=== PATIENT | female | born 1980 | race Caucasian/White ===

== ENCOUNTER 2016-03-01 08:16 | Emergency (ER) | payer BC, OTHER ==
[2016-03-01 08:22] VITALS: RESP 18; TEMP 98
[2016-03-01] MEDS ORDERED: PANTOPRAZOLE 40 MG/10 ML VIAL IVP STA (08:32)
[2016-03-01] MEDS ORDERED: SODIUM CHLORIDE 0.9% 1,000 ML IV STA ×2 (08:32)
[2016-03-01] MEDS ORDERED: ONDANSETRON 4 MG/2 ML VIAL IVP STA (08:32)
--- NOTE | 2016-03-01 08:38 | ED ---
General Adult HPI - General Chief complaint: GI Bleed Stated complaint: DIARRHEA, BLOODY STOOL, ABDOMINAL PAIN Time Seen by Provider: 03/01/16 08:26 Source: patient, RN notes reviewed Mode of arrival: ambulatory Limitations: no limitations - History of Present Illness Initial comments: Patient 35-year-old female who presents emergency room today with a chief complaint of diarrhea with blood mixed into the stool over the last 2 days. Patient does admit that she's had several bouts of diarrhea over the last 2-3 days. She states she began noticing some what appears to be blood mixed in to the stool. She states she's also see in the toilet itself. She denies ever having similar symptoms in the past. Denies any recent antibiotic use or travel. Patient does admit some cramping in the lower abdomen. She states seems like when she eats things 1 ago straight through her. Patient does admit to feeling nauseated at times. She denies any other complaints associated symptoms. Currently rates pain at 3/10 located in the lower abdomen described as crampy. Patient denies any recent fever, chills, shortness of breath, chest pain, back pain, vomiting, numbness or tingling, dysuria or hematuria, constipation, headaches or visual changes, or any other complaints. - Related Data Home Medications Medication Instructions Recorded Confirmed ALPRAZolam [Xanax] 0.25 mg PO TID PRN 06/17/14 03/01/16 Carisoprodol [Soma] 350 mg PO DAILY PRN 06/17/14 03/01/16 Methadone [Dolophine] 10 mg PO BID 06/17/14 03/01/16 Mirtazapine [Remeron] 15 mg PO HS 05/27/15 03/01/16 Ondansetron HCl [Zofran] 4 mg PO Q8HR PRN 12/15/15 03/01/16 cloNIDine 0.1 MG/24HR PATCH 1 patch TRANSDERM Q7D 03/01/16 03/01/16 [Catapres-Tts 0.1MG Patch] Previous Rx's Medication Instructions Recorded Omeprazole 20 mg PO DAILY 10 Days 03/01/16 Ondansetron Odt [Zofran ODT] 4 mg PO Q8HR PRN #15 tab 03/01/16 Allergies Allergy/AdvReac Type Severity Reaction Status Date / Time aspirin AdvReac Abdominal Verified 03/01/16 08:44 Pain Review of Systems ROS Statement: Those systems with pertinent positive or pertinent negative responses have been documented in the HPI. ROS Other: All systems not noted in ROS Statement are negative. Past Medical History Past Medical History: Liver Disease Additional Past Medical History / Comment(s): hep c, pneumothorax with chest tube in past. History of Any Multi-Drug Resistant Organisms: None Reported Past Surgical History: Section Additional Past Surgical History / Comment(s): Colposcopy/LEEP, wisdom teeth extraction. Past Anesthesia/Blood Transfusion Reactions: No Reported Reaction Past Psychological History: Anxiety, Depression Additional Psychological History / Comment(s): Pt resides with her spouse and children. She is independent. Smoking Status: Current every day smoker Past Alcohol Use History: Rare Additional Past Alcohol Use History / Comment(s): Pt started smoking in 1996. She has been trying to quit the past couple of months and using a patch. Past Drug Use History: Heroin, Marijuana Additional Drug Use History / Comment(s): Pt states she smokes marijuana on a mostly daily basis and last smoked yesterday. She has hx of heroin use and last used 7 yrs ago. She is on methadone. - Past Family History Mother Family Medical History: COPD Additional Family Medical History / Comment(s): Ex-smoker Father Family Medical History: CVA/TIA Additional Family Medical History / Comment(s): brain aneurysm. General Exam - General Exam Comments Initial Comments: General: The patient is awake and alert, in no distress, and does not appear acutely ill. Eye: Pupils are equal, round and reactive to light, extra-ocular movements are intact. No nystagmus. There is normal conjunctiva bilaterally. No signs of icterus. Ears, nose, mouth and throat: There are moist mucous membranes and no oral lesions. Neck: The neck is supple, there is no tenderness or JVD. Cardiovascular: There is a regular rate and rhythm. No murmur, rub or gallop is appreciated. Respiratory: Lungs are clear to auscultation, respirations are non-labored, breath sounds are equal. No wheezes, stridor, rales, or rhonchi. Gastrointestinal: Normal. His abdomen. Normal bowel sounds. Abdomen soft on palpation. Patient does have mild tenderness lower abdomen. No rebound tenderness. No guarding. No CVA tenderness. Musculoskeletal: Normal ROM, no tenderness. Strength 5/5. Sensation intact. Pulses equal bilaterally 2+. Neurological: A&O x 3. CN II-XII intact, There are no obvious motor or sensory deficits. Coordination appears grossly intact. Speech is normal. Skin: Skin is warm and dry and no rashes or lesions are noted. Psychiatric: Cooperative, appropriate mood & affect, normal judgment. : [employer] Dawna present for exam. Normal rectal tone. No bright red blood per rectum. No hemorrhoids. Limitations: no limitations Course Vital Signs 03/01/16 08:18 Temperature 98.0 F Pulse Rate 77 Respiratory 18 Rate Blood Pressure 122/56 O2 Sat by Pulse 100 Oximetry Medical Decision Making - Medical Decision Making Patient reexamined at this time shows no signs of distress. Does admit that she 's feeling better after medications given here in the emergency room. Abdomen soft on reexamination. Her x-rays reviewed does show moderate amount of stool no sign of an obstruction. Patient's labs been reviewed guaiac was negative. Patient's hemoglobin stable. No elevated white count or sign for infection. No fever. Vitals are stable. Patient is advised follow-up the family doctor over the next 2 days. She'll be treated with omeprazole, Zofran for her symptoms. Also given information for GI and was discussed about possibility of a colonoscopy. Patient is advised to return if any symptoms increase or worsen or for any other concerns. She states understanding and is in agreement. - Lab Data Result diagrams: 03/01/16 08:50 03/01/16 08:50 Lab Results 03/01/16 03/01/16 03/01/16 Range/Units 08:50 08:50 08:50 WBC 6.1 (3.8-10.6) k/uL RBC 3.66 L (3.80-5.40) m/uL Hgb 11.0 L (11.4-16.0) gm/dL Hct 32.9 L (34.0-46.0) % MCV 89.9 (80.0-100.0) fL MCH 30.0 (25.0-35.0) pg MCHC 33.4 (31.0-37.0) g/dL RDW 13.0 (11.5-15.5) % Plt Count 159 (150-450) k/uL Neutrophils % 73 % Lymphocytes % 19 % Monocytes % 5 % Eosinophils % 2 % Basophils % 0 % Neutrophils # 4.5 (1.3-7.7) k/uL Lymphocytes # 1.2 (1.0-4.8) k/uL Monocytes # 0.3 (0-1.0) k/uL Eosinophils # 0.1 (0-0.7) k/uL Basophils # 0.0 (0-0.2) k/uL PT 9.9 (9.0-12.0) sec INR 1.0 (<1.1) APTT 25.4 (22.0-30.0) sec Sodium 142 (137-145) mmol/L Potassium 3.5 (3.5-5.1) mmol/L Chloride 108 H (98-107) mmol/L Carbon Dioxide 24 (22-30) mmol/L Anion Gap 10 mmol/L BUN 13 (7-17) mg/dL Creatinine 0.73 (0.52-1.04) mg/dL Est GFR (MDRD) Af Amer >60 (>60 ml/min/1.73 sqM) Est GFR (MDRD) Non-Af >60 (>60 ml/min/1.73 sqM) Glucose 106 H (74-99) mg/dL Calcium 8.8 (8.4-10.2) mg/dL Total Bilirubin 0.4 (0.2-1.3) mg/dL AST 14 (14-36) U/L ALT 23 (9-52) U/L Alkaline Phosphatase 35 L (38-126) U/L Total Protein 6.3 (6.3-8.2) g/dL Albumin 3.9 (3.5-5.0) g/dL Urine Color Urine Appearance (Clear) Urine pH (5.0-8.0) Ur Specific [place] (1.001-1.035) Urine Protein (Negative) Urine Glucose (UA) (Negative) Urine Ketones (Negative) Urine Blood (Negative) Urine Nitrate (Negative) Urine Bilirubin (Negative) Urine Urobilinogen (<2.0) mg/dL Ur Leukocyte Esterase (Negative) Urine RBC (0-5) /hpf Urine WBC (0-5) /hpf Ur Squamous Epith Cells (0-4) /hpf Urine Bacteria (None) /hpf Urine Mucus (None) /hpf Urine HCG, Qual (Not Detectd) Stool Occult Blood (Negative) 03/01/16 03/01/16 03/01/16 Range/Units 08:50 09:45 09:45 WBC (3.8-10.6) k/uL RBC (3.80-5.40) m/uL Hgb (11.4-16.0) gm/dL Hct (34.0-46.0) % MCV (80.0-100.0) fL MCH (25.0-35.0) pg MCHC (31.0-37.0) g/dL RDW (11.5-15.5) % Plt Count (150-450) k/uL Neutrophils % % Lymphocytes % % Monocytes % % Eosinophils % % Basophils % % Neutrophils # (1.3-7.7) k/uL Lymphocytes # (1.0-4.8) k/uL Monocytes # (0-1.0) k/uL Eosinophils # (0-0.7) k/uL Basophils # (0-0.2) k/uL PT (9.0-12.0) sec INR (<1.1) APTT (22.0-30.0) sec Sodium (137-145) mmol/L Potassium (3.5-5.1) mmol/L Chloride (98-107) mmol/L Carbon Dioxide (22-30) mmol/L Anion Gap mmol/L BUN (7-17) mg/dL Creatinine (0.52-1.04) mg/dL Est GFR (MDRD) Af Amer (>60 ml/min/1.73 sqM) Est GFR (MDRD) Non-Af (>60 ml/min/1.73 sqM) Glucose (74-99) mg/dL Calcium (8.4-10.2) mg/dL Total Bilirubin (0.2-1.3) mg/dL AST (14-36) U/L ALT (9-52) U/L Alkaline Phosphatase (38-126) U/L Total Protein (6.3-8.2) g/dL Albumin (3.5-5.0) g/dL Urine Color Yellow Urine Appearance Clear (Clear) Urine pH 6.5 (5.0-8.0) Ur Specific [place] 1.014 (1.001-1.035) Urine Protein Negative (Negative) Urine Glucose (UA) Negative (Negative) Urine Ketones Negative (Negative) Urine Blood Negative (Negative) Urine Nitrate Negative (Negative) Urine Bilirubin Negative (Negative) Urine Urobilinogen <2.0 (<2.0) mg/dL Ur Leukocyte Esterase Trace H (Negative) Urine RBC 1 (0-5) /hpf Urine WBC 1 (0-5) /hpf Ur Squamous Epith Cells 7 H (0-4) /hpf Urine Bacteria Rare H (None) /hpf Urine Mucus Rare H (None) /hpf Urine HCG, Qual Not Detected (Not Detectd) Stool Occult Blood Negative (Negative) Disposition Clinical Impression: Abdominal pain Disposition: HOME SELF-CARE Condition: Good Instructions: Abdominal Pain (ED) Additional Instructions: Please follow the family doctor and GI doctor over the next 1-2 days. Please use medications as prescribed. Please return to emergency room if there is any lightheadedness, dizziness or increase or worsening symptoms as discussed. Please return for any other concerns. Prescriptions: Omeprazole 20 mg PO DAILY 10 Days Ondansetron Odt [Zofran ODT] 4 mg PO Q8HR PRN #15 tab PRN Reason: Nausea Referrals: Fuad Woodard MD [Primary Care Provider] - 1-2 days Nader Edward MD [STAFF PHYSICIAN] - 1-2 days Time of Disposition: 10:37
[2016-03-01 09:04] LABS: Basophils % (A) 0 %; CH 30.5; CHCM 34.1; Eosinophils # (A) 0.1 k/uL (0-0.7); Eosinophils % (A) 2 %; HCT 32.9 % (34.0-46.0); HDW 2.43; Luc # (Auto) 0.05; Luc % (Auto) 1; Lymphocytes # (A) 1.2 k/uL (1.0-4.8); Lymphocytes % (A) 19 %; MCHC 33.4 g/dL (31.0-37.0); MCV 89.9 fL (80.0-100.0); Mean Platelet Volume 8.5; Monocytes # (A) 0.3 k/uL (0-1.0); Monocytes % (A) 5 %; Neutrophils # (A) 4.5 k/uL (1.3-7.7); Neutrophils % (A) 73 %; RBC 3.66 m/uL (3.80-5.40); WBC 6.1 k/uL (3.8-10.6); WBC (Perox) 6.07
[2016-03-01 09:12] LABS: Partial Thromboplastin Time 25.4 sec (22.0-30.0); Prothrombin Time 9.9 sec (9.0-12.0)
[2016-03-01 09:18] LABS: ALT 23 U/L (9-52); AST 14 U/L (14-36); Alkaline Phosphatase 35 U/L (38-126); Anion Gap 10 mmol/L; Blood Urea Nitrogen 13 mg/dL (7-17); Calcium 8.8 mg/dL (8.4-10.2); Carbon Dioxide 24 mmol/L (22-30); Chloride 108 mmol/L (98-107); Glucose 106 mg/dL (74-99); Non-African American GFR(MDRD) >60 (>60 ml/min/1.73 sqM); Potassium 3.5 mmol/L (3.5-5.1); Sodium 142 mmol/L (137-145); Total Bilirubin 0.4 mg/dL (0.2-1.3); Total Protein 6.3 g/dL (6.3-8.2)
[2016-03-01] MEDS ORDERED: ACETAMINOPHEN IV (For NPO) 1,000 MG in SALINE 100 100ML.BAG IVPB STA (09:42)
[2016-03-01 09:59] LABS: Appearance,Urine Clear (Clear); Bacteria,Urine Rare /hpf; Bilirubin,Urine Negative (Negative); Glucose,Urine (UA) Negative (Negative); Ketones,Urine Negative (Negative); Leukocyte Esterase,Urine Trace (Negative); Mucus,Urine Rare /hpf; Nitrite,Urine Negative (Negative); PH, Urine 6.5 (5.0-8.0); Particle Count 3179; Protein,Urine Negative (Negative); RBC,Urine 1 /hpf (0-5); Specific Gravity,Urine 1.014 (1.001-1.035); Squamous Epithelial Cell,Urine 7 /hpf (0-4); UA Billing (MACRO vs. MICRO) MICRO; Urobilinogen,Urine <2.0 mg/dL (<2.0); WBC,Urine 1 /hpf (0-5)
--- NOTE | 2016-03-01 10:21 | XR ---
EXAMINATION TYPE: XR KUB DATE OF EXAM: 03/01/2016 10:17 AM COMPARISON: 12/15/2015 HISTORY: Pain FINDINGS: The osseous structures are intact. The bowel gas pattern is nonspecific. Lung bases are clear. Post surgical change in the pelvis and vascular calcifications noted. Retained fecal debris throughout the colon. IMPRESSION: 1. Nonspecific abdomen.
[2016-03-01 11:10] VITALS: BP 115/55; PULSE 60
== END 2016-03-01 11:08 | disposition home or self-care (01) ==
LOC: EC 08:16
DX: R10.30 Lower abdominal pain, unspecified (principal); R19.7 Diarrhea, unspecified; R11.0 Nausea; F41.9 Anxiety disorder, unspecified; F32.9 Major depressive disorder, single episode, unspecified; F12.90 Cannabis use, unspecified, uncomplicated; F11.99 Opioid use, unspecified with unspecified opioid-induced disorder; F17.200 Nicotine dependence, unspecified, uncomplicated; Z86.19 Personal history of other infectious and parasitic diseases; Z79.899 Other long term (current) drug therapy
CPT/HCPCS: 36415; 80053; 85025; 85610; 85730; 82272; 81001; 81025; 74000; 99284; 96374; 96375 ×2; 96361 ×2; J2405; J0131; C9113

== ENCOUNTER → 2016-03-08 | Outpatient (CLI) | payer BC, OTHER ==
[2016-03-08 11:10] LABS: CH 30.1; HCT 37.6 % (34.0-46.0); HDW 2.52; MCH 29.3 pg (25.0-35.0); MCV 91.7 fL (80.0-100.0); Mean Platelet Volume 8.4; WBC 3.6 k/uL (3.8-10.6); WBC (Perox) 3.87
[2016-03-08 11:27] LABS: Bilirubin, Delta 0.4 mg/dL (0.0-0.2); Total Bilirubin 0.4 mg/dL (0.2-1.3); Total Protein 7.1 g/dL (6.3-8.2)
[2016-03-08 14:36] LABS: Add Differential Manual Differential
[2016-03-08 14:39] LABS: Nucleated Red Blood Cells 0 /100 WBC (0-0); Total Cells Counted 100
[2016-03-10 12:14] LABS: Hepatits C Virus RNA, Quant <12 IU/mL (<12); LOG HCV IU/mL <1.08 (<1.08)
== END | disposition home or self-care (01) ==
LOC: LABWHC1 10:34
DX: B18.2 Chronic viral hepatitis C (principal)
CPT/HCPCS: 36415; 80076; 85025; 87522

== ENCOUNTER → 2016-11-28 | Outpatient (CLI) | payer BC, OTHER ==
--- NOTE | 2016-11-28 11:41 | CT ---
EXAMINATION TYPE: CT pelvis w con DATE OF EXAM: 11/28/2016 COMPARISON: CT abdomen and pelvis December 15, 2015 HISTORY: Chronic pelvic mass per patient. Pelvic and perineal pain per order. CT DLP: 333.60 mGycm Automated exposure control for dose reduction was used. CONTRAST: Performed with IV Contrast, patient injected with 100 ml mL of Omnipaque 300. FINDINGS: Visualized bowel shows no suspicious dilatation. Surgical sutures and clips at base of cecum from lanie endectomy are present on current study. Uterus is anteverted in shape and normal in size. Tubal ligation clips along the periphery of the sup erior uterus are redemonstrated. Both ovaries are present and not suspiciously enlarged. No significa nt free fluid is seen in pelvis. The perirectal/perianal fat bilaterally symmetric and felt within normal limits. Visualized osseous structures are intact. Bladder is felt unremarkable. IMPRESSION: UNREMARKABLE STUDY
== END | disposition home or self-care (01) ==
LOC: RADCTMAIN 09:47
PROVIDERS: ATTEND Family Medicine
DX: R10.2 Pelvic and perineal pain (principal)
CPT/HCPCS: 72193; Q9967

== ENCOUNTER 2017-06-26 22:03 | Emergency (ER) | payer BC, OTHER ==
[2017-06-27] MEDS ORDERED: ALPRAZolam 0.5 MG TAB PO STA
--- NOTE | 2017-06-27 00:01 | ED ---
Anxiety HPI - General Chief Complaint: Anxiety Stated Complaint: xanax withdrawl Time Seen by Provider: 06/26/17 23:53 Source: patient Mode of arrival: ambulatory - History of Present Illness Initial Comments: 36-year-old female patient presents to the emergency department today with complaints of anxiety and withdrawal. Patient states that she ran out of her Xanax early in her primary care provider will not give her another prescription. States that he is did start her on BuSpar today but is not helping with her symptoms. Patient states that she feels scared and panicky. States this is generally how she feels in her anxiety gets bad. She denies any suicidal or homicidal ideation. Denies any hallucinations. She denies any alcohol or drug use. Patient denies any recent rash, fever, chills, shortness breath, chest pain, abdominal pain, nausea, vomiting, diarrhea, constipation, back pain, numbness, tingling, dizziness, weakness, hematuria, dysuria, urinary urgency, urinary frequency, headache, visual changes, or any other complaints. - Related Data Home Medications: Home Medications Medication Instructions Recorded Confirmed Carisoprodol [Soma] 350 mg PO DAILY PRN 06/17/14 06/26/17 HYDROcodone/APAP 10-325MG [[place] 1 tab PO Q6HR PRN 06/26/17 06/26/17 10-325] busPIRone HCL [Buspar] 7.5 mg PO BID 06/26/17 06/26/17 cloNIDine HCL [Catapres] 0.1 mg PO HS 06/26/17 06/26/17 Allergies/Adverse Reactions: Allergies Allergy/AdvReac Type Severity Reaction Status Date / Time aspirin AdvReac Abdominal Verified 06/26/17 23:39 Pain Review of Systems ROS Statement: Those systems with pertinent positive or pertinent negative responses have been documented in the HPI. ROS Other: All systems not noted in ROS Statement are negative. Past Medical History Past Medical History: Liver Disease Additional Past Medical History / Comment(s): hep c, pneumothorax with chest tube in past. History of Any Multi-Drug Resistant Organisms: None Reported Past Surgical History: Section Additional Past Surgical History / Comment(s): Colposcopy/LEEP, wisdom teeth extraction. Past Anesthesia/Blood Transfusion Reactions: No Reported Reaction Past Psychological History: Anxiety, Depression Smoking Status: Current every day smoker Past Alcohol Use History: Rare Past Drug Use History: Heroin, Marijuana - Past Family History Mother Family Medical History: COPD Additional Family Medical History / Comment(s): Ex-smoker Father Family Medical History: CVA/TIA Additional Family Medical History / Comment(s): brain aneurysm. General Exam Limitations: no limitations General appearance: alert, in no apparent distress, anxious, other (This is a well-developed, well-nourished adult female patient in no acute distress. Vital signs upon presentation are temperature 97.6F, pulse 64, respirations 16 , blood pressure 117/63, pulse ox 99% on room air.) Eye exam: Present: normal appearance, PERRL, EOMI. Absent: scleral icterus, conjunctival injection, periorbital swelling ENT exam: Present: normal exam, mucous membranes moist Neck exam: Present: normal inspection. Absent: tenderness, meningismus, lymphadenopathy Respiratory exam: Present: normal lung sounds bilaterally. Absent: respiratory distress, wheezes, rales, rhonchi, stridor Cardiovascular Exam: Present: regular rate, normal rhythm, normal heart sounds. Absent: systolic murmur, diastolic murmur, rubs, gallop, clicks Neurological exam: Present: alert, oriented X3, CN II-XII intact Psychiatric exam: Present: normal affect, normal mood, anxious Skin exam: Present: warm, dry, intact, normal color. Absent: rash Course Vital Signs 06/26/17 06/27/17 22:09 00:14 Temperature 97.6 F 98.0 F Pulse Rate 64 60 Respiratory 16 18 Rate Blood Pressure 117/63 122/57 O2 Sat by Pulse 99 97 Oximetry Medical Decision Making - Medical Decision Making 36 year-old female patient presents to the emergency department today for complaints of anxiety and withdrawal from Xanax. Physical examination was unremarkable. Vital signs are stable. Did discuss the case with my attending Dr. Espinoza who recommends giving the patient Xanax to go home with. I did discuss this with the patient and informed her we would not be giving her prescription. She is instructed to obtain prescriptions for controlled substances from her primary care physician. Return parameters discussed in detail. She verbalizes understanding and agrees with this plan. Disposition Clinical Impression: Withdrawal from benzodiazepine Disposition: HOME SELF-CARE Condition: Good Instructions: Generalized Anxiety Disorder (ED) Additional Instructions: Follow-up with your primary care physician for any further medication needs. Return here immediately for any new, worsening, or concerning symptoms. Is patient prescribed a controlled substance at d/c from ED?: No Referrals: Fuad Woodard MD [Primary Care Provider] - 1-2 days Time of Disposition: 00:01
[2017-06-27 00:15] VITALS: BP 122/57; PULSE 60; RESP 18; TEMP 98
== END 2017-06-27 00:15 | disposition home or self-care (01) ==
LOC: EC 22:03
DX: F19.939 Other psychoactive substance use, unspecified with withdrawal, unspecified (principal); F41.9 Anxiety disorder, unspecified; F17.200 Nicotine dependence, unspecified, uncomplicated; Z79.899 Other long term (current) drug therapy; Z88.6 Allergy status to analgesic agent
CPT/HCPCS: 99283

== ENCOUNTER → 2019-11-16 | Outpatient (CLI) | payer BC, OTHER ==
--- NOTE | 2019-11-17 07:18 | US ---
EXAMINATION TYPE: US transvaginal DATE OF EXAM: 11/16/2019 COMPARISON: US CLINICAL HISTORY: N92.6 IRREGULAR MENSES. Patient stated irregular menses 6 to 12 months; ; C sec tion x 2; colposcopy TECHNIQUE: Transvaginal (TV). Transvaginal sonographic images of the pelvis were acquired per physi jessica's order. Date of LMP: 11/12/2019 EXAM MEASUREMENTS: Uterus: 8.4 x 4.6 x 4.0 cm Endometrial Stripe: 0.7 cm Right Ovary: 2.3 x 2.1 x 1.2 cm Left Ovary: 2.7 x 2.5 x 1.3 cm 1. Uterus: Anteverted; C section scar is noted; small Nabothian Cyst seen in cervix = 0.6 x 0.5 x 0. 4cm. 2. Endometrium: thickness is wnl for Day 5 LMP 3. Right Ovary: small follicles within 4. Left Ovary: small follicles within Color flow is seen in bilateral ovary. 5. Bilateral Adnexa: wnl 6. Posterior cul-de-sac: wnl IMPRESSION: 1. Small bilateral ovarian follicles with no definite acute process. 2. Endometrial stripe measures 7 mm correlate with patient's menstrual cycle.
== END | disposition home or self-care (01) ==
LOC: RADUSWWP 15:40
DX: N92.6 Irregular menstruation, unspecified (principal); Z86.19 Personal history of other infectious and parasitic diseases
CPT/HCPCS: 76830; 87522

== ENCOUNTER 2020-03-04 20:21 | Emergency (ER) | payer BC, OTHER ==
[2020-03-04 20:26] VITALS: BP 132/74; PULSE 80; RESP 20; TEMP 98.3
--- NOTE | 2020-03-04 20:37 | ED ---
General Adult HPI - General Chief complaint: Psychiatric Symptoms Stated complaint: Anxiety Time Seen by Provider: 03/04/20 20:28 Source: patient Mode of arrival: wheelchair Limitations: no limitations - History of Present Illness Initial comments: Dictation was produced using [employer] dictation software. please excuse any grammatical, word or spelling errors. This patient was cared for during a federal and state declared state of emergency secondary to Covid 19 Chief Complaint: 39-year-old female presents with depression and suicidal ideation History of Present Illness: 39-year-old female she has past medical history of anxiety. She took Risperdal. She reports she was never formally diagnosed with any sort of psychiatric disease. She states she feels really anxious on on for 2 days to the point where she can't sleep. She does feel suicidal. She does not have a specific plan. She is worried if she goes home she might harm herself. Patient denies any homicidal ideation. States that she is anxious about everything. No visual or auditory hallucinations. Patient's history of bilateral tubal ligation. The ROS documented in this emergency department record has been reviewed and confirmed by me. Those systems with pertinent positive or negative responses have been documented in the HPI. All other systems are other negative and/or noncontributory. PHYSICAL EXAM: General Impression: Alert and oriented x3, not in acute distress HEENT: Normocephalic atraumatic, extra-ocular movements intact, pupils equal and reactive to light bilaterally, mucous membranes moist. Cardiovascular: Heart regular rate and rhythm Chest: Able to complete full sentences, no retractions, no tachypnea Abdomen: abdomen soft, non-tender, non-distended, no organomegaly Musculoskeletal: Pulses present and equal in all extremities, no peripheral edema Motor: no focal deficits noted Neurological: CN II-XII grossly intact, no focal motor or sensory deficits noted Skin: Intact with no visualized rashes Psych: Tearful ED course: 39-year-old female presents with suicidal ideation. Signs upon arrival are within acceptable limits. Patient medically cleared for EPS evaluation. Patient was evaluated by EPS recommended discharge. Allegedly placed and had a lot of frustration with sexual intimacy with her . She given outpatient psychiatric resources. - Related Data Home Medications Medication Instructions Recorded Confirmed Carisoprodol [Soma] 350 mg PO DAILY PRN 06/17/14 06/26/17 HYDROcodone/APAP 10-325MG [[place] 1 tab PO Q6HR PRN 06/26/17 06/26/17 10-325] busPIRone HCL [Buspar] 7.5 mg PO BID 06/26/17 06/26/17 cloNIDine HCL [Catapres] 0.1 mg PO HS 06/26/17 06/26/17 Allergies Allergy/AdvReac Type Severity Reaction Status Date / Time aspirin AdvReac Abdominal Verified 03/04/20 20:26 Pain Review of Systems ROS Statement: Those systems with pertinent positive or pertinent negative responses have been documented in the HPI. ROS Other: All systems not noted in ROS Statement are negative. Past Medical History Past Medical History: Liver Disease Additional Past Medical History / Comment(s): hep c, pneumothorax with chest tube in past. History of Any Multi-Drug Resistant Organisms: None Reported Past Surgical History: Section Additional Past Surgical History / Comment(s): Colposcopy/LEEP, wisdom teeth extraction. Past Anesthesia/Blood Transfusion Reactions: No Reported Reaction Past Psychological History: Anxiety, Depression Smoking Status: Former smoker Past Alcohol Use History: Rare Past Drug Use History: Heroin, Marijuana - Past Family History Mother Family Medical History: COPD Additional Family Medical History / Comment(s): Ex-smoker Father Family Medical History: CVA/TIA Additional Family Medical History / Comment(s): brain aneurysm. General Exam Limitations: no limitations Course Vital Signs 03/04/20 20:22 Temperature 98.3 F Pulse Rate 80 Respiratory 20 Rate Blood Pressure 132/74 O2 Sat by Pulse 96 Oximetry Disposition Clinical Impression: Depression Disposition: HOME SELF-CARE Condition: Good Is patient prescribed a controlled substance at d/c from ED?: No Referrals: Fuad Woodard MD [Primary Care Provider] - 1-2 days Time of Disposition: 21:48
[2020-03-04] MEDS ORDERED: ONDANSETRON ODT 4 MG TAB PO STA (21:45)
== END 2020-03-04 21:58 | disposition home or self-care (01) ==
LOC: EC 20:21
DX: F32.9 Major depressive disorder, single episode, unspecified (principal); F41.9 Anxiety disorder, unspecified; Z79.899 Other long term (current) drug therapy; Z88.6 Allergy status to analgesic agent; Z87.891 Personal history of nicotine dependence
CPT/HCPCS: 82075; 99283

== ENCOUNTER 2021-08-09 20:36 | Inpatient (IN) | payer BC, MEDICAID, OTHER ==
--- NOTE | 2021-08-09 22:12 | ED ---
Psych HPI - General Chief Complaint: Psychiatric Symptoms Stated Complaint: mental health Time Seen by Provider: 08/09/21 22:11 Source: patient Mode of arrival: ambulatory - Related Data Home Medications Medication Instructions Recorded Confirmed carisoprodoL [Soma] 350 mg PO DAILY PRN 06/17/14 06/26/17 HYDROcodone/APAP 10-325MG [[place] 1 tab PO Q6HR PRN 06/26/17 06/26/17 10-325] busPIRone HCL [Buspar] 7.5 mg PO BID 06/26/17 06/26/17 cloNIDine HCL [Catapres] 0.1 mg PO HS 06/26/17 06/26/17 Allergies Allergy/AdvReac Type Severity Reaction Status Date / Time aspirin AdvReac Abdominal Verified 08/09/21 21:59 Pain Review of Systems ROS Statement: Those systems with pertinent positive or pertinent negative responses have been documented in the HPI. ROS Other: All systems not noted in ROS Statement are negative. Past Medical History Past Medical History: Liver Disease Additional Past Medical History / Comment(s): hep c, pneumothorax with chest tube in past. History of Any Multi-Drug Resistant Organisms: None Reported Past Surgical History: Section Additional Past Surgical History / Comment(s): Colposcopy/LEEP, wisdom teeth extraction. Past Anesthesia/Blood Transfusion Reactions: No Reported Reaction Past Psychological History: Anxiety, Depression, PTSD Smoking Status: Former smoker Past Alcohol Use History: Rare Past Drug Use History: Heroin, Marijuana - Past Family History Mother Family Medical History: COPD Additional Family Medical History / Comment(s): Ex-smoker Father Family Medical History: CVA/TIA Additional Family Medical History / Comment(s): brain aneurysm. General Exam Limitations: no limitations Course Vital Signs 08/09/21 21:55 Temperature 97.2 F L Pulse Rate 66 Respiratory 18 Rate Blood Pressure 115/77 O2 Sat by Pulse 95 Oximetry Disposition Clinical Impression: Polysubstance abuse, Depression, Suicidal ideation Disposition: TRANSFER TO PSYCH HOSP/UNIT Condition: Fair Is patient prescribed a controlled substance at d/c from ED?: No
[2021-08-10] MEDS ORDERED: LORazepam 1 MG TAB PO PRN (02:21)
[2021-08-10] MEDS ORDERED: MAGNESIUM HYDROXIDE 2,400 MG/10 ML CUP PO PRN (02:21)
[2021-08-10] MEDS ORDERED: MAG HYDROX/AL HYDROX/SIMETH 30 ML CUP PO PRN (02:21)
[2021-08-10] MEDS ORDERED: ACETAMINOPHEN TAB 325 MG TAB PO PRN (02:21)
[2021-08-10] MEDS: HYDROcodone/APAP 10-325MG 1 EACH TAB PO PRN ×3 (08:22→21:10)
[2021-08-10 08:23] VITALS: RESP 20; TEMP 98.3
[2021-08-10] MEDS ORDERED: busPIRone HCl 5 MG TAB PO SCH (09:00)
[2021-08-10] MEDS ORDERED: NICOTINE 14MG/24HR PATCH TRANSDERM SCH (09:00)
[2021-08-10] MEDS ORDERED: DICYCLOMINE 20 MG TAB PO PRN (12:51)
[2021-08-10] MEDS ORDERED: IBUPROFEN 600 MG TAB PO PRN (12:51)
[2021-08-10] MEDS ORDERED: ALBUTEROL HFA INHALER INHALATION PRN (12:51)
--- NOTE | 2021-08-10 13:17 | P.HP ---
Psychiatric H&P - . H&P Date: 08/10/21 History & Physical: Allergies Allergy/AdvReac Type Severity Reaction Status Date / Time aspirin AdvReac Abdominal Verified 08/10/21 10:17 Pain Vital Signs Temp 98.3 F 08/10/21 08:23 Pulse 79 08/10/21 08:23 Resp 20 08/10/21 08:23 BP 127/86 08/10/21 08:23 Pulse Ox 98 08/10/21 04:47 FiO2 Intake & Output 08/09/21 08/10/21 08/10/21 18:59 06:59 18:59 Weight 87.798 kg Laboratory Last Values Urine HCG, Qual Not Detected (Not Detectd) 08/10/21 08:30 Coronavirus (PCR) Not Detected (Not Detectd) 08/10/21 02:57 08/10/21 13:04 IDENTIFYING DATA: Patient is a 40-year-old female who currently lives with her in a house has 3 kids and is unemployed. HPI: Patient presented to the hospital yesterday for a mental health evaluation depression and apparently suicidal thoughts according the ER report. Patient was admitted voluntarily to the mental health unit last night. Patient was fairly demanding in the hallways and aggressively asking to speak with the physician underwriter about her medications. She was seen today before lunch time and agreeable speaking in the right's office. Patient was fairly demanding and states that she wants back on all her medication. Patient was fairly focused on her Lyrica, Xanax and Valium and other controlled medications including her opiates. She states that the only thing that helps her feel better. She claims that she knows "my rights" and claims that she is "not being treated right at all" and believes that she is going to go into withdrawals and also seizures. She states she as well as take her Valium and Xanax twice a day and is prescribed by her PCP. She states that she has been feeling depressed however is denying any suicidal thoughts today. She was demanding and irritable and w anting to go home. Patient denies any suicidal or homicidal ideations intent or plan. At this time patient denies any auditory or visual hallucinations. Patient denies any flight of ideas racing thoughts and increased in goal directed behavior. Patient admits to using opiates as prescribed by her doctor, also smokes marijuana daily. Denies any other recreational drug use PAST PSYCHIATRIC HISTORY: Patient states that she has history of anxiety and depression, previously on BuSpar, Lexapro, Remeron, Valium and Xanax. Patient denies any previous psychiatric hospitalizations. He claims that she does follow-up at [facility] however does not see any prescriber at that. Patient denies any history of suicide attempts in the past. PMH: As per medicine H&P ALLERGIES: as per EMR CHEMICAL DEPENDENCY HISTORY: as per HPI FAMILY PSYCHIATRIC/SUBSTANCE USE HISTORY: denies SOCIAL HISTORY: Patient was born and raised in [facility]. She states that she completed up to 10th grade in school. She claims that she does not have any legal history. 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 She is unemployed at this time. She has 3 kids and lives with her and house. MENTAL STATUS EXAM: General Appearance: Patient appears to be tall, stated age is alert, demanding and irritable. Patient appears to have fair hygiene and grooming. Behavior: Patient is seated without any agitated behavior. Demanding. Irritable. Speech: Patient's speech is fluent and nonpressured. Loud at times Mood/Affect: Patient reports their mood is depressed, affect is congruent Suicidality/Homicidality: Patient denies having any homicidal ideation intent or plan. Denies any suicidal ideations intent or plan Perceptions: Patient denies any visual hallucinations and denies any auditory hallucinations Though content/process: There is no evidence of any delusional thought content and thought process is linear and goal-directed. Demanding. Focus on discharge Memory and concentration: AOX3, grossly intact for the purposes of this session. Can spell "WORLD" backwards Judgment and insight: Poor STRENGTHS/WEAKNESSES: strength is that patient is resilient. Weakness is that patient has poor judgment and is impulsive INTELLECT: average IMPRESSIONS: Depressive disorder unspecified Cannabis use disorder mild Possible benzodiazepine abuse Possible opioid abuse PLAN: -Patient is admitted under voluntary status to MHU for stabilization of psychiatric symptoms and safety. Patient has signed adult voluntary form and is placed in patient's chart. -Medications : Will start patient on her home dose of Lexapro 20 mg daily for mood sessions that he, Remeron 30 mg daily at bedtime for insomnia/appetite/mood, Klonopin restarted at home dose 5 mg twice a day. Holding Xanax at this time. -Ativan and Haldol] PRN for agitation/aggression [-Patient was counselled on substance abuse and desired to cut back on use] -Patient was informed of the risks, benefits and side effects of the medication and patient verbally consented to taking the medications. Patient signed med consent form and was placed in chart. -Internal Medicine consult to perform medical evaluation and physical. -NRT - not needed as patient does not smoke -SW on board for discharge planning. Encourage patient to participate in groups to work on coping skills. [] 08/10/21 13:12
[2021-08-10] MEDS: PANTOPRAZOLE 40 MG TABLET PO SCH (13:55)
[2021-08-10] MEDS: ESCITALOPRAM 20 MG TAB PO SCH (13:55)
[2021-08-10] MEDS: diazePAM 5 MG TAB PO SCH ×2 (13:55→21:09)
[2021-08-10] MEDS: ALPRAZolam 0.5 MG TAB PO PRN (16:21)
[2021-08-10] MEDS ORDERED: ONDANSETRON ODT 4 MG TAB PO PRN (16:52)
[2021-08-10 19:50] VITALS: BP 166/101; PULSE 111
[2021-08-10] MEDS: cloNIDine HCL 0.1 MG TAB PO PRN (19:53)
[2021-08-10] MEDS ORDERED: cloNIDine HCL 0.1 MG TAB PO SCH (21:00)
[2021-08-10] MEDS ORDERED: MIRTAZAPINE 15 MG TAB PO SCH (21:00)
[2021-08-10 21:46] LABS: Urine Alcohol Negative (Negative); Urine Barbiturate Negative (Negative); Urine Cocaine Negative (Negative); Urine Methadone Negative (Negative); Urine Opiates Positive (Negative); Urine Phencyclidine Negative (Negative)
[2021-08-11] MEDS: ALPRAZolam 0.5 MG TAB PO PRN (01:33)
[2021-08-11] MEDS: cloNIDine HCL 0.1 MG TAB PO PRN (02:29)
[2021-08-11] MEDS: HYDROcodone/APAP 10-325MG 1 EACH TAB PO PRN (05:58)
[2021-08-11] MEDS: ESCITALOPRAM 20 MG TAB PO SCH (08:27)
[2021-08-11] MEDS: diazePAM 5 MG TAB PO SCH (08:27)
[2021-08-11] MEDS: PANTOPRAZOLE 40 MG TABLET PO SCH (08:27)
--- NOTE | 2021-08-11 11:16 | P.DS ---
Providers Date of admission: 08/10/21 02:05 Expected date of discharge: 08/11/21 Attending physician: Kilo Bloom MD Consults: 08/10/21 02:21 Consult Physician Routine Consulting Provider: Mirella Tucker Consult Reason/Comments: h and p Do you want consulting provider notified?: Yes, Notify in am Primary care physician: Fuad Woodard MD - Discharge Diagnosis(es) (1) Depressive disorder Current Visit: Yes Status: Acute Priority: High (2) Generalized anxiety disorder Current Visit: Yes Status: Acute Priority: Medium (3) Cannabis use disorder, mild, abuse Current Visit: Yes Status: Acute Priority: Low (4) Benzodiazepine abuse Current Visit: Yes Status: Acute Priority: Medium (5) Opioid abuse Current Visit: Yes Status: Acute Priority: Medium Hospital Course: Admission HPI: Admission note was completed by designer/writer "Patient is a 40-year-old female who currently lives with her in a house has 3 kids and is unemployed. Patient presented to the hospital yesterday for a mental health evaluation depression and apparently suicidal thoughts according the ER report. Patient was admitted voluntarily to the mental health unit last night. Patient was fairly demanding in the hallways and aggressively asking to speak with the designer/writer about her medications. She was seen today before lunch time and agreeable speaking in the right's office. Patient was fairly demanding and states that she wants back on all her medication. Patient was fairly focused on her Lyrica, Xanax and Valium and other controlled medications including her opiates. She states that the only thing that helps her feel better. She claims that she knows "my rights" and claims that she is "not being treated right at all" and believes that she is going to go into withdrawals and also seizures. She states she as well as take her Valium and Xanax twice a day and is prescribed by her PCP. She states that she has been feeling depressed however is denying any suicidal thoughts today. She was demanding and irritable and wanting to go home. Patient denies any suicidal or homicidal ideations intent or plan. At this time patient denies any auditory or visual hallucinations. Patient denies any flight of ideas racing thoughts and increased in goal directed behavior. Patient admits to using opiates as prescribed by her doctor, also smokes marijuana daily. Denies any other recreational drug use" Hospital course: Upon admission to the unit patient was directable and agreeable to commence treatment and signed adult voluntary form . Patient was fairly demanding and preoccupied with discharge on her first day of admission and signed AMA. Patient started taking her medications and got along well with other patients on the unit and followed unit protocol. Patient was compliant with the medications and denied any side effects throughout hospital course. Patient was started on her home dose of clonidine when necessary for anxiety, Lexapro 20 mg daily for mood/anxiety, Remeron 30 mg daily at bedtime for insomnia/update/mood, restarted back on Klonopin at a lower dose 0.5 mg 3 times a day when necessary for anxiety. Held Xanax. Patient was restarted back on Valium her home dose and also her home dose of [place]'s. Patient spoke of her stressors and engaged in t herapy both group and individual. Patient was also seen by medical team for history and physical exam. Throughout the course of the hospitalization patient gradually improved with regards to mood, anxiety, sleep and returned back to their baseline level of functioning. On the day of discharge patient denied any suicidal or homicidal ideations intent or plan denied any auditory or visual hallucinations. Patient endorsed wanting to live for her health and her future. The patient denied any access to guns or weapons. Patient denied any paranoia and did not endorse any delusions. Patient does have a significant history of substance abuse and was counseled on abstaining from all substances including alcohol and marijuana. Patient elected to do outpatient substance use treatment program and declined rehab. Patient was also counseled on the medications and need for regular compliance and was encouraged to follow-up with their outpatient appointment for mental health and also for primary care. Prior to discharge a family meeting will be arranged by social work professor to answer any questions and ensure safety upon discharge. Mental status exam: General Appearance: Patient appears to be have short hair, stated age is alert, pleasant, and cooperative. Patient is in no acute distress and has improved hygiene and grooming Behavior: Patient is calmly seated without any agitated behavior. Her cooperative today and less demanding. Speech: Patient's speech is fluent and nonpressured. Mood/Affect: Patient reports their mood is "better", affect is congruent Suicidality/Homicidality: Patient denies having any suicidal or homicidal ideation intent or plan. Perceptions: Patient denies any auditory or visual hallucinations. Though content/process: There is no evidence of any delusional thought content and thought process is linear and goal-directed. more future oriented Memory and concentration: AOX3, grossly intact for the purposes of this session. Can spell "WORLD" backwards correctly. Judgment and insight: improved with guarded prognosis Impression: Depressive disorder unspecified Generalized anxiety disorder Cannabis use disorder mild Benzodiazepine abuse Opioid abuse Plan: -Continue with discharge today as patient has improved and stabilized psychiatrically and is not currently an imminent threat to herself and/or others. Patient will remain at chronically elevated risk for harm to self and/or others due to her impulsivity and substance abuse. -Continue medications: Continue with Klonopin at a lower dose 0.5 mg 3 times a day when necessary for anxiety, home dose of Valium 5 mg twice a day for anxiety, Remeron 30 mg daily at bedtime for insomnia/appetite/mood, Lexapro 20 mg daily for mood/anxiety. -Patient was counseled on the need for medication compliance and appropriate follow-up at mental health and also primary care for medical issues. Patient verbalized understanding and agreed. -Social work to arrange for and conduct family meeting to ensure safety upon discharge and answer any questions/concerns. Social work also to arrange for patients follow up appointments for psychiatric care along with follow up with primary care provider. -Patient counseled on abstaining from recreational drugs and marijuana and alcohol. Was informed/educated on the adverse effects on their physical and mental health. Patient verbally agreed and understood. Patient was offered substance abuse treatment however declined at this time. -Patient was instructed to return to the hospital or seek immediate medical care if their psychiatric or medical symptoms do worsen or reoccur. Allergies Allergy/AdvReac Type Severity Reaction Status Date / Time aspirin AdvReac Abdominal Verified 08/10/21 10:17 Pain Laboratory Results Urine HCG, Qual Not Detected (Not Detectd) 08/10/21 08:30 Urine Opiates Screen Positive (Negative) A 08/10/21 08:30 Urine Methadone Screen Negative (Negative) 08/10/21 08:30 Ur Propoxyphene Screen Negative (Negative) 08/10/21 08:30 Urine Barbiturates Negative (Negative) 08/10/21 08:30 Ur Phencyclidine Scrn Negative (Negative) 08/10/21 08:30 Ur Amphetamine Screen Negative (Negative) 08/10/21 08:30 U Benzodiazepines Scrn Positive (Negative) A 08/10/21 08:30 Urine Cocaine Screen Negative (Negative) 08/10/21 08:30 U Cannabinoids Screen Positive (Negative) A 08/10/21 08:30 Urine Alcohol Negative (Negative) 08/10/21 08:30 Coronavirus (PCR) Not Detected (Not Detectd) 08/10/21 02:57 Vital Signs Temp 98.3 F 08/10/21 08:23 Pulse 111 H 08/10/21 19:49 Resp 20 08/10/21 08:23 BP 166/101 08/10/21 19:49 Pulse Ox 98 08/10/21 04:47 FiO2 Patient Condition at Discharge: Stable Plan - Discharge Summary New Discharge Prescriptions: New cloNIDine HCL [Catapres] 0.1 mg PO BID PRN 14 Days tab PRN Reason: Anxiety ALPRAZolam [Xanax] 0.5 mg PO TID PRN tab PRN Reason: Anxiety Continue HYDROcodone/APAP 10-325MG [[place] 10-325] 1.5 tab PO Q8H PRN PRN Reason: Pain Dicyclomine [Bentyl] 20 mg PO TID PRN PRN Reason: CRAMPS Escitalopram [Lexapro] 20 mg PO DAILY 30 Days tab Ondansetron Odt [Zofran ODT] 4 mg PO Q12HR PRN PRN Reason: Nausea Omeprazole 20 mg PO DAILY Albuterol Sulfate [Proair Hfa] 2 puff INHALATION RT-Q4H PRN PRN Reason: Shortness Of Breath Ibuprofen [Motrin] 600 mg PO Q8HR PRN PRN Reason: Pain diazePAM [Valium] 5 mg PO BID Ergocalciferol [Vitamin D2 (1250 Mcg = 58880 Iu)] 1,250 mcg PO SO Mirtazapine [Remeron] 30 mg PO HS 30 Days tab Discontinued cloNIDine HCL [Catapres] 0.1 mg PO TID risperiDONE [RisperDAL] 1 mg PO HS Naloxone HCl 4 mg NS ONCE PRN PRN Reason: OVERDOSE ALPRAZolam [Xanax] 1 mg PO BID PRN PRN Reason: Anxiety methocarbamoL [Robaxin] 500 mg PO BID PRN PRN Reason: Muscle Spasm Discharge Medication List HYDROcodone/APAP 10-325MG [[place] 10-325] 1.5 tab PO Q8H PRN 06/26/17 [History] Albuterol Sulfate [Proair Hfa] 2 puff INHALATION RT-Q4H PRN 08/10/21 [History] Dicyclomine [Bentyl] 20 mg PO TID PRN 08/10/21 [History] Ergocalciferol [Vitamin D2 (1250 Mcg = 16635 Iu)] 1,250 mcg PO SO 08/10/21 [History] Ibuprofen [Motrin] 600 mg PO Q8HR PRN 08/10/21 [History] Omeprazole 20 mg PO DAILY 08/10/21 [History] Ondansetron Odt [Zofran ODT] 4 mg PO Q12HR PRN 08/10/21 [History] diazePAM [Valium] 5 mg PO BID 08/10/21 [History] ALPRAZolam [Xanax] 0.5 mg PO TID PRN tab 08/11/21 [Rx] Escitalopram [Lexapro] 20 mg PO DAILY 30 Days tab 08/11/21 [Rx] Mirtazapine [Remeron] 30 mg PO HS 30 Days tab 08/11/21 [Rx] cloNIDine HCL [Catapres] 0.1 mg PO BID PRN 14 Days tab 08/11/21 [Rx] Follow up Appointment(s)/Referral(s): Fuad Woodard MD [Primary Care Provider] - 1-2 days Discharge Disposition: HOME SELF-CARE
[2021-08-11 12:15] LABS: Basophils % (A) 0 %; Eosinophils % (A) 0 %; HCT 40.8 % (34.0-46.0); HGB 13.6 gm/dL (11.4-16.0); Lymphocytes # (A) 1.6 k/uL (1.0-4.8); Lymphocytes % (A) 24 %; MCHC 33.2 g/dL (31.0-37.0); MCV 87.3 fL (80.0-100.0); Mean Platelet Volume 7.9; Monocytes # (A) 0.3 k/uL (0-1.0); Monocytes % (A) 5 %; Neutrophils # (A) 4.4 k/uL (1.3-7.7); Neutrophils % (A) 69 %; Platelet Count 280 k/uL (150-450); RBC 4.67 m/uL (3.80-5.40); RDW 14.2 % (11.5-15.5); WBC 6.4 k/uL (3.8-10.6)
[2021-08-11 12:55] LABS: ALT 25 U/L (4-34); AST 29 U/L (14-36); African American GFR (CKD) >90 (>60 ml/min/1.73 sqM); Albumin 4.9 g/dL (3.5-5.0); Alkaline Phosphatase 63 U/L (38-126); Anion Gap 14 mmol/L; Blood Urea Nitrogen 11 mg/dL (7-17); Carbon Dioxide 19 mmol/L (22-30); Chloride 106 mmol/L (98-107); Glucose 114 mg/dL (74-99); Non-African American GFR(CKD) >90 (>60 ml/min/1.73 sqM); Potassium 3.4 mmol/L (3.5-5.1); Sodium 139 mmol/L (137-145); Total Bilirubin 0.7 mg/dL (0.2-1.3); Total Protein 7.8 g/dL (6.3-8.2)
[2021-08-11 18:04] LABS: Chol/HDL Ratio 4.66 Ratio; LDL Cholesterol,Calculated 206.6 mg/dL (0.0-131.0); VLDL Calculation 19.62 mg/dL (5.00-40.00)
[2021-08-13] MEDS ORDERED: ERGOCALCIFEROL 1,250 MCG (50,000 IU) CAPSULE PO SCH (09:00)
== END 2021-08-11 12:08 | disposition home or self-care (01) | DRG 881 ==
LOC: EC 20:36 → 3MHU 08-10 02:05
PROVIDERS: ADMIT Psychiatry & Neurology Psychiatry; ATTEND Psychiatry & Neurology Psychiatry
DX: F32.A Depression, unspecified (principal); R45.851 Suicidal ideations; F13.10 Sedative, hypnotic or anxiolytic abuse, uncomplicated; F11.10 Opioid abuse, uncomplicated; B19.20 Unspecified viral hepatitis C without hepatic coma; Z20.822 Contact with and (suspected) exposure to COVID-19; F41.1 Generalized anxiety disorder; F12.10 Cannabis abuse, uncomplicated; G47.00 Insomnia, unspecified; Z79.899 Other long term (current) drug therapy; Z71.51 Drug abuse counseling and surveillance of drug abuser; Z71.41 Alcohol abuse counseling and surveillance of alcoholic; Z87.891 Personal history of nicotine dependence; Z98.891 History of uterine scar from previous surgery; Z98.818 Other dental procedure status; Z56.0 Unemployment, unspecified; Z88.6 Allergy status to analgesic agent; Z82.5 Family history of asthma and other chronic lower respiratory diseases; Z82.3 Family history of stroke
CPT/HCPCS: 80053; 80061; 80306; 81025; 82075; 83036; 84443; 85025; 87635; 99285

== ENCOUNTER 2021-12-08 20:44 | Emergency (ER) | payer OTHER ==
[2021-12-08] MEDS ORDERED: SODIUM CHLORIDE 0.9% 1,000 ML IV STA (23:09)
[2021-12-08 23:28] LABS: Basophils # (A) 0.1 k/uL (0-0.2); Basophils % (A) 1 %; Eosinophils # (A) 0.2 k/uL (0-0.7); Eosinophils % (A) 5 %; HCT 36.8 % (34.0-46.0); HGB 12.7 gm/dL (11.4-16.0); Lymphocytes # (A) 2.2 k/uL (1.0-4.8); Lymphocytes % (A) 42 %; MCH 30.2 pg (25.0-35.0); MCHC 34.6 g/dL (31.0-37.0); MCV 87.3 fL (80.0-100.0); Mean Platelet Volume 8.6; Monocytes # (A) 0.3 k/uL (0-1.0); Monocytes % (A) 5 %; Neutrophils # (A) 2.4 k/uL (1.3-7.7); Neutrophils % (A) 46 %; Platelet Count 248 k/uL (150-450); RBC 4.22 m/uL (3.80-5.40); RDW 13.6 % (11.5-15.5); WBC 5.2 k/uL (3.8-10.6)
[2021-12-08 23:37] LABS: ALT 26 U/L (4-34); AST 31 U/L (14-36); African American GFR (CKD) >90 (>60 ml/min/1.73 sqM); Albumin 4.6 g/dL (3.5-5.0); Alkaline Phosphatase 53 U/L (38-126); Anion Gap 10 mmol/L; Blood Urea Nitrogen 12 mg/dL (7-17); Calcium 9.2 mg/dL (8.4-10.2); Carbon Dioxide 25 mmol/L (22-30); Chloride 104 mmol/L (98-107); Glucose 95 mg/dL (74-99); Non-African American GFR(CKD) >90 (>60 ml/min/1.73 sqM); Potassium 3.9 mmol/L (3.5-5.1); Sodium 139 mmol/L (137-145); Total Bilirubin 0.6 mg/dL (0.2-1.3); Total Protein 6.9 g/dL (6.3-8.2)
--- NOTE | 2021-12-09 00:22 | CT ---
EXAMINATION TYPE: CT soft tissue neck w con DATE OF EXAM: 12/09/2021 COMPARISON: HISTORY: dysphagia [id number] CT DLP: 270.8 mGycm Automated exposure control for dose reduction was used. CONTRAST: Performed with IV Contrast, patient injected with 100 mL of Isovue 300. Images obtained from the aortic arch to the top of the frontal sinuses with the IV contrast. There is normal branching pattern of the great vessels. The ascending aorta measures 2.5 cm. There is some apparent low-density fluid around the ascending aorta that measures up to 9 mm in thickness. Th e thyroid gland is intact. There is normal contrast opacification of the carotid arteries and jugular veins. Epiglottis is normal. The trachea appears intact. The tongue is intact. The tonsils and adeno ids appear within normal limits. Submandibular salivary glands appear normal. Parotid glands are symmetric. No evidence of a mass. The re is fairly normal aeration of the paranasal sinuses. The mandibular ring is intact. No evidence of any significant cervical lymphadenopathy. IMPRESSION: Negative CT scan of the cervical soft tissues. No evidence of pharyngeal mass. There is some low density apparent fluid around the ascending aorta of uncertain significance. No aor tic aneurysm or dissection.
[2021-12-09] MEDS ORDERED: HYDROcodone/APAP 5-325MG 1 EACH TAB PO STA (00:35)
[2021-12-09] MEDS ORDERED: MORPHINE SULFATE 4 MG/ML SYRINGE IV STA (00:38)
[2021-12-09] MEDS ORDERED: ONDANSETRON 4 MG/2 ML VIAL IVP STA (00:38)
--- NOTE | 2021-12-09 00:40 | ED ---
ENT HPI - General Chief complaint: ENT Stated complaint: unable swallow Time Seen by Provider: 12/08/21 22:56 Source: EMS, RN notes reviewed Mode of arrival: EMS Limitations: no limitations - History of Present Illness Initial comments: This is a pleasant 41-year-old female who presents to the emergency department complaining of difficulty swallowing which has been going on for a few months. She said last night she choked on a doughnut and ended up having to cough it up. Patient apparently went to [facility] this morning and they were told to follow up with gastroenterology. Patient was unable to set up an appointment due to a disagreement with her primary care physician and the gastroenterology group. Patient then saw Dr. Cedeno and was referred to general surgery. Patient was unable to get in there due to lack of a referral being placed. Patient presents here. Patient states she feels like she is having difficulty swallowing. No other symptomology. No headache, no fever or chills, no changes in vision or hearing, no sore throat or difficulty with speech, no neck pain, no chest pain or shortness of breath, no abdominal pain, no nausea or vomiting, no changes in urination or bowel movements, no numbness or tingling, no extremity pain, no skin rashes or lesions. Patient does complain of chronic low back pain which is unchanged. Past medical, surgical, social, and family history reviewed. - Related Data Home Medications Medication Instructions Recorded Confirmed HYDROcodone/APAP 10-325MG [[place] 1.5 tab PO Q8H PRN 06/26/17 08/10/21 10-325] Albuterol Sulfate [Proair Hfa] 2 puff INHALATION RT-Q4H PRN 08/10/21 08/10/21 Dicyclomine [Bentyl] 20 mg PO TID PRN 08/10/21 08/10/21 Ergocalciferol [Vitamin D2 (1250 1,250 mcg PO SO 08/10/21 08/10/21 Mcg = 86067 Iu)] Ibuprofen [Motrin] 600 mg PO Q8HR PRN 08/10/21 08/10/21 Omeprazole 20 mg PO DAILY 08/10/21 08/10/21 Ondansetron Odt [Zofran ODT] 4 mg PO Q12HR PRN 08/10/21 08/10/21 diazePAM [Valium] 5 mg PO BID 08/10/21 08/10/21 Previous Rx's Medication Instructions Recorded ALPRAZolam [Xanax] 0.5 mg PO TID PRN tab 08/11/21 Escitalopram [Lexapro] 20 mg PO DAILY 30 Days tab 08/11/21 Mirtazapine [Remeron] 30 mg PO HS 30 Days tab 08/11/21 cloNIDine HCL [Catapres] 0.1 mg PO BID PRN 14 Days tab 08/11/21 Albuterol Inhaler [Ventolin Hfa 2 puff INHALATION Q4HR PRN #1 each 12/09/21 Inhaler] Allergies Allergy/AdvReac Type Severity Reaction Status Date / Time aspirin AdvReac Abdominal Verified 12/08/21 20:50 Pain Review of Systems ROS Statement: Those systems with pertinent positive or pertinent negative responses have been documented in the HPI. ROS Other: All systems not noted in ROS Statement are negative. Past Medical History Past Medical History: Liver Disease Additional Past Medical History / Comment(s): hep c, pneumothorax with chest tube in past. History of Any Multi-Drug Resistant Organisms: None Reported Past Surgical History: Section Additional Past Surgical History / Comment(s): Colposcopy/LEEP, wisdom teeth extraction. Past Anesthesia/Blood Transfusion Reactions: No Reported Reaction Past Psychological History: Anxiety, Depression, PTSD Smoking Status: Former smoker, Vaper Past Alcohol Use History: Rare Past Drug Use History: Heroin, Marijuana - Past Family History Mother Family Medical History: COPD Additional Family Medical History / Comment(s): Ex-smoker Father Family Medical History: CVA/TIA Additional Family Medical History / Comment(s): brain aneurysm. General Exam - General Exam Comments Initial Comments: Patient had no distress, does not appear to be ill or toxic. No airway problems. Limitations: no limitations General appearance: alert, in no apparent distress Head exam: Present: atraumatic, normocephalic, normal inspection Eye exam: Present: normal appearance, PERRL, EOMI. Absent: scleral icterus, conjunctival injection, periorbital swelling ENT exam: Present: normal exam, normal oropharynx, mucous membranes moist, TM's normal bilaterally, normal external ear exam. Absent: mucous membranes dry Neck exam: Present: normal inspection, full ROM. Absent: tenderness, meningismus, lymphadenopathy Respiratory exam: Present: wheezes (Patient did have very fine expiratory wheezes noted. No evidence of respiratory distress.). Absent: respiratory distress, rales, rhonchi, stridor, chest wall tenderness, accessory muscle use, decreased breath sounds, prolonged expiratory Cardiovascular Exam: Present: regular rate, normal rhythm, normal heart sounds. Absent: systolic murmur, diastolic murmur, rubs, gallop, clicks GI/Abdominal exam: Present: soft, normal bowel sounds. Absent: distended, tenderness, guarding, rebound, rigid Extremities exam: Present: normal inspection, full ROM, normal capillary refill. Absent: tenderness, pedal edema, joint swelling, calf tenderness Back exam: Present: normal inspection Neurological exam: Present: alert, oriented X3, CN II-XII intact Psychiatric exam: Present: normal affect, normal mood Skin exam: Present: warm, dry, intact, normal color. Absent: rash Course Vital Signs 12/08/21 20:46 Temperature 98 F Pulse Rate 61 Respiratory 18 Rate Blood Pressure 122/73 O2 Sat by Pulse 95 Oximetry - Reevaluation(s) Reevaluation #1: 12/09/21 00:38 Medical record is reviewed Symptoms are improved here in the emergency department Patient is informed of results and questions answered Patient in no distress I assessed the patient swallowing. Patient had no problems swallowing liquids here in the ER. Patient able to hold them down. Computed tomography scan did not show any evidence of significant pathology. There was nonspecific trace fluid near the ascending aorta of undetermined significance. Procedures - Smoking Cessation Time Spent Discussing Smoking Cessation w/Patient (Minutes): 3 Patient Acknowledges Need for Cessation: Yes Medical Decision Making - Medical Decision Making Discussed all findings, discussed need for follow-up. Visualized patient swallowing without difficulty. Discussed clear liquid and soft diet. Patient will be given follow-up with general surgery on-call. She is to call 8 AM Saturday morning. Patient did have scant wheezing on physical examination. Patient states she does continue to smoke cigarettes and has an albuterol inhaler at home. I did prescribe another inhaler just in case she is out. Jennifer ent had no increased work of breathing or respiratory distress. Patient did ask for a dose of pain medication for her chronic back pain. Patient had no red flags regarding back pain. No evidence of cauda equina syndrome. This is a chronic issue for her with no acute change. The case was discussed in detail with ED attending physician. Presentation, findings, treatment plan discussed in detail. Supervising physician is Dr. Lockett - Lab Data Result diagrams: 12/08/21 23:19 12/08/21 23:19 Lab Results 12/08/21 12/08/21 Range/Units 23:19 23:19 WBC 5.2 (3.8-10.6) k/uL RBC 4.22 (3.80-5.40) m/uL Hgb 12.7 (11.4-16.0) gm/dL Hct 36.8 (34.0-46.0) % MCV 87.3 (80.0-100.0) fL MCH 30.2 (25.0-35.0) pg MCHC 34.6 (31.0-37.0) g/dL RDW 13.6 (11.5-15.5) % Plt Count 248 (150-450) k/uL MPV 8.6 Neutrophils % 46 % Lymphocytes % 42 % Monocytes % 5 % Eosinophils % 5 % Basophils % 1 % Neutrophils # 2.4 (1.3-7.7) k/uL Lymphocytes # 2.2 (1.0-4.8) k/uL Monocytes # 0.3 (0-1.0) k/uL Eosinophils # 0.2 (0-0.7) k/uL Basophils # 0.1 (0-0.2) k/uL Sodium 139 (137-145) mmol/L Potassium 3.9 (3.5-5.1) mmol/L Chloride 104 (98-107) mmol/L Carbon Dioxide 25 (22-30) mmol/L Anion Gap 10 mmol/L BUN 12 (7-17) mg/dL Creatinine 0.74 (0.52-1.04) mg/dL Est GFR (CKD-EPI)AfAm >90 (>60 ml/min/1.73 sqM) Est GFR (CKD-EPI)NonAf >90 (>60 ml/min/1.73 sqM) Glucose 95 (74-99) mg/dL Calcium 9.2 (8.4-10.2) mg/dL Total Bilirubin 0.6 (0.2-1.3) mg/dL AST 31 (14-36) U/L ALT 26 (4-34) U/L Alkaline Phosphatase 53 (38-126) U/L Total Protein 6.9 (6.3-8.2) g/dL Albumin 4.6 (3.5-5.0) g/dL - Radiology Data Radiology results: report reviewed, image reviewed Disposition Clinical Impression: Swallowing difficulty, Globus sensation, Cigarette smoker Narrative: Essentially chronic dysphagia with no imaging abnormality goods when the patient symptomology Disposition: HOME SELF-CARE Condition: Stable Instructions (If sedation given, give patient instructions): How to Stop Smoking (ED), Soft Diet (ED), Chronic Dysphagia (DC) Additional Instructions: Stichter mostly clear liquids and a soft diet until follow-up with Dr. Soto. Follow-up with your regular physician as directed. Return to the ER immediately if any symptoms worsen, new symptoms arise, or any other problems develop. Prescriptions: Albuterol Inhaler [Ventolin Hfa Inhaler] 2 puff INHALATION Q4HR PRN #1 each PRN Reason: Wheezing Is patient prescribed a controlled substance at d/c from ED?: No Referrals: Dari Soto MD [STAFF PHYSICIAN] - 12/11/21 8:00 am Time of Disposition: 00:39
[2021-12-09 00:46] VITALS: PULSE 78; RESP 16; TEMP 98.2
[2021-12-09 00:48] VITALS: BP 122/82
== END 2021-12-09 00:50 | disposition home or self-care (01) ==
LOC: EC 20:44
DX: R13.10 Dysphagia, unspecified (principal); Z87.891 Personal history of nicotine dependence; Z86.73 Personal history of transient ischemic attack (TIA), and cerebral infarction without residual deficits
CPT/HCPCS: 36415; 80053; 85025; 70491; 99285; 96374; 96375; 96361; J2270; J2405; Q9967

== ENCOUNTER → 2022-01-04 | Outpatient (CLI) | payer OTHER ==
--- NOTE | 2022-01-04 12:15 | FL ---
EXAMINATION TYPE: FL barium swallow DATE OF EXAM: 01/04/2022 CLINICAL INDICATION: 41-year-old female R13.10, dysphagia. Sensation of food getting stuck in the thr oat for a year. COMPARISON: Correlation CT 12/08/2021 Total Fluoroscopy Time: 2 minutes 17 seconds 61 images obtained. FINDINGS: The swallowing mechanism is normal and hypopharyngeal anatomy is preserved. There is no abnormal cric opharyngeal muscle thickening, diverticulum, or web identified. The cervical and thoracic portions have a normal course and caliber. The mucosa is normal and no pers istent filling defect is encountered. No fixed narrowing. [id number] tertiary peristaltic waves are demonstrated along the distal half of the esophagus. Secondary stripping waves are blunted with delayed clearance of contrast from the distal esophagus. There may be a trace hiatal hernia intermittently seen. No sizable hiatal hernia. Unable to elicit an y gastroesophageal reflux during the course of the study. IMPRESSION: 1. Mild to moderate esophageal dysmotility with some tertiary waves and blunted secondary stripping w aves. This results in some delay in clearance of contrast from the lower esophagus. 2. No sizable hiatal hernia. Unable to elicit any gastroesophageal reflux during the course of the st udy. 3. Along the neck, no abnormal cricopharyngeal muscle thickening or diverticulum is seen.
== END | disposition home or self-care (01) ==
LOC: RADUSWWP 08:31
PROVIDERS: ATTEND Surgery Plastic and Reconstructive Surgery
DX: K22.4 Dyskinesia of esophagus (principal); R13.10 Dysphagia, unspecified
CPT/HCPCS: 74220

== ENCOUNTER → 2022-01-15 | Outpatient (CLI) | payer OTHER ==
--- NOTE | 2022-01-16 08:28 | CT ---
EXAMINATION TYPE: CT chest w con DATE OF EXAM: 01/15/2022 COMPARISON: None HISTORY: Nicotine Dependence CT DLP: 282.50 mGycm, Automated exposure control for dose reduction was used. CONTRAST: Performed injected with 70 ml mL of Isovue 300. TECHNIQUE: Axial images were obtained at 5 mm thick sections. Reconstructed images are reviewed on [employer] computer in the coronal plane. FINDINGS: Portion of the thyroid visualized is normal. No suspicious lung nodules or focal infiltrates are present. No enlarged mediastinal or hilar adenopathy is evident. The ascending aorta diameter at the level o f the main pulmonary artery is 2.7 cm. The main pulmonary artery diameter at the bifurcation is 2.[address] sections are obtained through the upper abdomen. Abdomen is essentially unremarkable. IMPRESSIONS: 1. No suspicious changes to suggest primary or metastatic neoplasm. Study is performed as a standard CT chest. Recommend evaluation for low dose CT screening for this patient.
== END | disposition home or self-care (01) ==
LOC: RADCTMAIN 09:30
PROVIDERS: ATTEND Family Medicine
DX: F17.200 Nicotine dependence, unspecified, uncomplicated (principal)
CPT/HCPCS: 71260; Q9967

== ENCOUNTER 2022-01-17 07:55 | Day surgery (SDC) | payer OTHER ==
--- NOTE | 2022-01-17 07:47 | P.GSHP ---
History of Present Illness H&P Date: 01/17/22 CHIEF COMPLAINT: GERD HISTORY OF PRESENT ILLNESS: The patient is a 41-year-old female who presents reports gastroesophageal reflux disease. Upper endoscopy was offered for further evaluation and management. PAST MEDICAL HISTORY: Please see list. PAST SURGICAL HISTORY: Please see list. MEDICATIONS: Please see list. ALLERGIES: Please see list. SOCIAL HISTORY: No illicit drug use FAMILY HISTORY: No reports of Crohn disease or ulcerative colitis. REVIEW OF ORGAN SYSTEMS: CONSTITUTIONAL: No reports of fevers or chills. GI: Denies any blood in stools or constipation. PHYSICAL EXAM: VITAL SIGNS: Stable GENERAL: Well-developed and pleasant in no acute distress. HEENT: No scleral icterus. Extraocular movements grossly intact. Moist buccal mucosa. NECK: Supple without lymphadenopathy. CHEST: Unlabored respirations. Equal bilateral excursions. CARDIOVASCULAR: Regular rate and rhythm. Distal 2+ pulses. ABDOMEN: Soft, nondistended. MUSCULOSKELETAL: No clubbing, cyanosis, or edema. ASSESSMENT: 1. Gastroesophageal reflux disease PLAN: 1. Recommend proceeding with an upper endoscopy Past Medical History Past Medical History: Asthma, Fibromyalgia, GERD/Reflux, Liver Disease Additional Past Medical History / Comment(s): hep c treated , pneumothorax with chest tube in past. spasming of esophagus hard time swallowing. arthritis in hands, neck and spine. History of Any Multi-Drug Resistant Organisms: None Reported Past Surgical History: Appendectomy, Section Additional Past Surgical History / Comment(s): Colposcopy/LEEP, wisdom teeth extraction. Past Anesthesia/Blood Transfusion Reactions: No Reported Reaction Additional Past Anesthesia/Blood Transfusion Reaction / Comment(s): no blood transfusions Smoking Status: Former smoker, Vaper - Past Family History Mother Family Medical History: COPD Additional Family Medical History / Comment(s): Ex-smoker, uses 02 Father Family Medical History: CVA/TIA Additional Family Medical History / Comment(s): brain aneurysm. Medications and Allergies Home Medications Medication Instructions Recorded Confirmed Type HYDROcodone/APAP 10-325MG [[place] 1.5 tab PO Q8H PRN 06/26/17 01/10/22 History 10-325] Dicyclomine [Bentyl] 20 mg PO TID PRN 08/10/21 01/10/22 History Ergocalciferol [Vitamin D2 (1250 1,250 mcg PO SO 08/10/21 01/10/22 History Mcg = 30326 Iu)] Ibuprofen [Motrin] 600 mg PO Q8HR PRN 08/10/21 01/10/22 History Ondansetron Odt [Zofran ODT] 4 mg PO Q12HR PRN 08/10/21 01/10/22 History Escitalopram [Lexapro] 20 mg PO DAILY 30 Days tab 08/11/21 01/10/22 Rx Mirtazapine [Remeron] 30 mg PO HS 30 Days tab 08/11/21 01/10/22 Rx Albuterol Inhaler [Ventolin Hfa 2 puff INHALATION Q4HR PRN #1 each 12/09/21 01/10/22 Rx Inhaler] Oxybutynin Chloride [Ditropan XL] 10 mg PO DAILY 01/10/22 01/10/22 History Pantoprazole [Protonix] 40 mg PO DAILY 01/10/22 01/10/22 History Pregabalin [Lyrica] 100 mg PO TID 01/10/22 01/10/22 History cloNIDine HCL [Catapres] 0.1 mg PO TID PRN 01/10/22 01/10/22 History clonazePAM [Klonopin] 2 mg PO DAILY 01/10/22 01/10/22 History Allergies Allergy/AdvReac Type Severity Reaction Status Date / Time aspirin AdvReac Abdominal Verified 01/10/22 12:40 Pain
[2022-01-17] MEDS ORDERED: LIDOCAINE 1% (10MG/ML) FOR IV START INTRADERMA PRN (08:05)
[2022-01-17] MEDS ORDERED: LACTATED RINGERS 1,000 ML IV SCH (08:05)
[2022-01-17 08:17] VITALS: TEMP 97.8
[2022-01-17] MEDS ORDERED: LIDOCAINE 2% INJ 20 MG/ML (2 ML VIAL) ONE (09:13)
[2022-01-17] MEDS ORDERED: PROPOFOL 10 MG/ML 20 ML VIAL IV ONE (09:13)
[2022-01-17] MEDS ORDERED: GLYCOPYRROLATE 0.2 MG/ML 2 ML VIAL ONE (09:13)
--- NOTE | 2022-01-17 09:44 | P.PCN ---
Date of Procedure: 01/17/22 Description of Procedure: PREOPERATIVE DIAGNOSIS: Dysphagia. Gastroesophageal reflux disease Presbyesophagus POSTOPERATIVE DIAGNOSIS: Esophageal dysphagia Gastroesophageal reflux disease Presbyesophagus OPERATION: Esophagogastroduodenoscopy with rigid dilator over the guidewire 54 Fr. SURGEON: Dari Soto MD ANESTHESIA: MAC. INDICATIONS: The patient is a 41-year-old female who presents with a history of dysphagia. Benefits and risks of the procedure were described. Informed consent was ob tained. DESCRIPTION: The patient was brought into the endoscopy suite and laid in the left lateral decubitus position. After a timeout was confirmed, the procedure was initiated. An Olympus gastroscope was passed and the stomach was entered. Mild gastritis was identified. The scope was advanced to the duodenum which was unremarkable. Next using an Dutch rigid dilator, a guidewire was placed through the pediatric gastroscope. Next the scope was withdrawn. A 54-Indonesian rigid Dutch dilator was passed carefully along the posterior oropharynx to 50 cm and left in place for 2-3 minutes stretch. The dilator was withdrawn including the guidewire. The scope was reentered along the posterior oropharynx with no findings tear of the upper esophageal sphincter. No full-thickness injury was encountered. The GI tract was desufflated. The patient tolerated the procedure well. FINDINGS: Squamocolumnar junction unremarkable at 45 cm. Esophageal dysphagia with presbyesophagus Dutch rigid dilator 54-Indonesian completed. Mild gastritis RECOMMENDATIONS: Upper endoscopy as needed Plan - Discharge Summary Discharge Rx Participant: No New Discharge Prescriptions: Continue HYDROcodone/APAP 10-325MG [[place] 10-325] 1.5 tab PO Q8H PRN PRN Reason: Pain Dicyclomine [Bentyl] 20 mg PO TID PRN PRN Reason: CRAMPS Escitalopram [Lexapro] 20 mg PO DAILY 30 Days tab Oxybutynin Chloride [Ditropan XL] 10 mg PO DAILY clonazePAM [KlonoPIN] 2 mg PO DAILY Ondansetron Odt [Zofran ODT] 4 mg PO Q12HR PRN PRN Reason: Nausea Ibuprofen [Motrin] 600 mg PO Q8HR PRN PRN Reason: Pain Ergocalciferol [Vitamin D2 (1250 Mcg = 39316 Iu)] 1,250 mcg PO SO Mirtazapine [Remeron] 30 mg PO HS 30 Days tab Albuterol Inhaler [Ventolin Hfa Inhaler] 2 puff INHALATION Q4HR PRN #1 each PRN Reason: Wheezing Pregabalin [Lyrica] 100 mg PO TID Pantoprazole [Protonix] 40 mg PO DAILY cloNIDine HCL [Catapres] 0.1 mg PO TID PRN PRN Reason: Anxiety risperiDONE [RisperDAL] 1 mg PO DAILY Discharge Medication List HYDROcodone/APAP 10-325MG [[place] 10-325] 1.5 tab PO Q8H PRN 06/26/17 [History] Dicyclomine [Bentyl] 20 mg PO TID PRN 08/10/21 [History] Ergocalciferol [Vitamin D2 (1250 Mcg = 49170 Iu)] 1,250 mcg PO SO 08/10/21 [History] Ibuprofen [Motrin] 600 mg PO Q8HR PRN 08/10/21 [History] Ondansetron Odt [Zofran ODT] 4 mg PO Q12HR PRN 08/10/21 [History] Escitalopram [Lexapro] 20 mg PO DAILY 30 Days tab 08/11/21 [Rx] Mirtazapine [Remeron] 30 mg PO HS 30 Days tab 08/11/21 [Rx] Albuterol Inhaler [Ventolin Hfa Inhaler] 2 puff INHALATION Q4HR PRN #1 each 12/09/21 [Rx] Oxybutynin Chloride [Ditropan XL] 10 mg PO DAILY 01/10/22 [History] Pantoprazole [Protonix] 40 mg PO DAILY 01/10/22 [History] Pregabalin [Lyrica] 100 mg PO TID 01/10/22 [History] cloNIDine HCL [Catapres] 0.1 mg PO TID PRN 01/10/22 [History] clonazePAM [KlonoPIN] 2 mg PO DAILY 01/10/22 [History] risperiDONE [RisperDAL] 1 mg PO DAILY 01/17/22 [History] Follow up Appointment(s)/Referral(s): Dari Soto MD [STAFF PHYSICIAN] - 01/23/22 Patient Instructions/Handouts: Esophageal Dilation (DC) Discharge Disposition: HOME SELF-CARE
[2022-01-17 09:56] VITALS: BP 122/82; PULSE 58; RESP 20
== END 2022-01-17 10:15 | disposition home or self-care (01) ==
LOC: ORWHC2ENDO 07:55
PROVIDERS: ATTEND Surgery Plastic and Reconstructive Surgery
DX: K22.89 Other specified disease of esophagus (principal); R13.10 Dysphagia, unspecified; K21.9 Gastro-esophageal reflux disease without esophagitis; J45.909 Unspecified asthma, uncomplicated; K76.9 Liver disease, unspecified; M19.041 Primary osteoarthritis, right hand; M19.042 Primary osteoarthritis, left hand; M47.9 Spondylosis, unspecified; Z90.49 Acquired absence of other specified parts of digestive tract; Z98.891 History of uterine scar from previous surgery; Z87.891 Personal history of nicotine dependence; Z82.5 Family history of asthma and other chronic lower respiratory diseases; Z82.0 Family history of epilepsy and other diseases of the nervous system; Z79.899 Other long term (current) drug therapy; Z79.1 Long term (current) use of non-steroidal anti-inflammatories (NSAID); Z79.51 Long term (current) use of inhaled steroids; Z88.6 Allergy status to analgesic agent
CPT/HCPCS: 43248; 81025; J2704; J2001; 43249

== ENCOUNTER 2022-02-07 09:18 | Emergency (ER) | payer OTHER ==
[2022-02-07 09:29] VITALS: TEMP 97.5
[2022-02-07] MEDS ORDERED: MORPHINE SULFATE 4 MG/ML SYRINGE IV STA (09:51)
[2022-02-07] MEDS ORDERED: SODIUM CHLORIDE 0.9% 1,000 ML IV STA (09:52)
--- NOTE | 2022-02-07 09:58 | ED ---
General Adult HPI - General Chief complaint: Abdominal Pain Stated complaint: Abd & Chest Pain Time Seen by Provider: 02/07/22 09:31 Source: patient Mode of arrival: ambulatory Limitations: no limitations - History of Present Illness Initial comments: Dictation was produced using [employer] dictation software. please excuse any grammatical, word or spelling errors. Chief Complaint: 41-year-old female multiple comorbidities presents to the ER for lower back pain, recent UTI, and cough History of Present Illness: Patient is a 41-year-old female she has past medical history fibromyalgia, asthma and liver disease. Patient states that she was recently diagnosed with a urinary tract infection. She is given a course of antibiotics that she completed. Patient states that her initial symptoms were lower back pain on the left side. Patient states that the pain is worse whenever she tries to move or stand. Patient is worried that she has a persistent urinary tract infection given that her lower back pain hasn't improved after course of Antibiotics. Patient also has a cough that is productive of green sputum. No sick contacts. Denies any constitutional symptoms. The ROS documented in this emergency department record has been reviewed and confirmed by me. Those systems with pertinent positive or negative responses have been documented in the HPI. All other systems are other negative and/or noncontributory. PHYSICAL EXAM: General Impression: Alert and oriented x3, not in acute distress HEENT: Normocephalic atraumatic, extra-ocular movements intact, pupils equal and reactive to light bilaterally, mucous membranes moist. Cardiovascular: Heart regular rate and rhythm Chest: Able to complete full sentences, no retractions, no tachypnea Abdomen: abdomen soft, non-tender, non-distended, no organomegaly Musculoskeletal: Pulses present and equal in all extremities, no peripheral edema Motor: no focal deficits noted Neurological: CN II-XII grossly intact, no focal motor or sensory deficits noted Skin: Intact with no visualized rashes Psych: Normal affect and mood ED course: 41-year-old well-appearing female presents emergency department for respiratory infectious symptoms and lower back pain. Lower back pain is musculoskeletal in nature. It's exacerbated with movement. Vital Signs upon arrival are within acceptable limits. Patient no acute distress. Nursing notes and chart review was performed My EKG interpretation: Ventricular rate 51, sinus bradycardia, OH interval 180, QTc 113, QTC 42. No OH prolongation, no QTC prolongation, no ST or T-wave changes noted. Note EKG for comparison. Overall, this EKG is unremarkable Laboratory evaluation obtained. CBC unremarkable. Metabolic panel is negative. Abdominal labs negative. Urinalysis is negative. For panel or PCR is negative. Acute abdominal series and chest x-ray is negative. Patient observed in emergency department for 2 hours. Reevaluated at bedside at 11:15 AM found to be in stable medical condition. Patient be discharge instructions to follow- up with primary care doctor. This will likely secondary to musculoskeletal back strain. Was pt. sent in by a medical professional or institution? @No Did you speak to anyone other than the patient for history? @No Did you review nursing and triage notes? @Yes, agree Were old charts reviewed? @Yes, EMR Differential Diagnosis? @Pyelonephritis, retroperitoneal hemorrhage, pneumonia, cystitis, fibroid EKG interpreted by me (3pts min.)? @ [none] X-rays interpreted by me (1pt min.)? @Yes showing no acute processes CT interpreted by me (1pt min.)? @ [none] U/S interpreted by me (1pt. min.)? @ [none] What testing was considered but not performed? (CT, X-rays, U/S, labs)? Why? @CT was considered however patient's physical examination was benign What meds were considered but not given? Why? @Antibiotics were considered however patient's urinalysis is negative. Did you discuss the management of the patient with other professionals? @No Did you reconcile home meds? @Not applicable Was smoking cessation discussed for >3mins.? @ [none] Was critical care preformed (if so, how long)? @ [none] Were there social determinants of health that impacted care today? How? (Homelessness, low income, unemployed, alcoholism, drug addiction, transportation, low edu. Level, literacy, decrease access to med. care, custodial, rehab)? @Not applicable Was there de-escalation of care discussed even if they declined? (Discuss DNR or withdrawal of care, Hospice)? @Bookable What co-morbidities impacted this encounter? (DM, HTN, Smoking, COPD, CAD, Cancer, CVA, Hep., AIDS, mental health diagnosis, sleep apnea, morbid obesity)? @Fibromyalgia Was patient admitted / discharged? @Discharged Undiagnosed new problem with uncertain prognosis? @ [none] Drug Therapy requiring intensive monitoring for toxicity (Heparin, Nitro, Insulin, Cardizem)? @ [none] Were any procedures done? @ [none] Diagnosis/symptom? @Musculoskeletal back strain Acute, or Chronic, or Acute on Chronic? @Acute Uncomplicated (without systemic symptoms) or Complicated (systemic symptoms)? @Uncomplicated Side effects of treatment? @ [none] Exacerbation, Progression, or Severe Exacerbation] @ [no] Poses a threat to life or bodily function? @ [no] - Related Data Home Medications Medication Instructions Recorded Confirmed HYDROcodone/APAP 10-325MG [[place] 1.5 tab PO Q8H PRN 06/26/17 01/17/22 10-325] Dicyclomine [Bentyl] 20 mg PO TID PRN 08/10/21 01/17/22 Ergocalciferol [Vitamin D2 (1250 1,250 mcg PO SO 08/10/21 01/17/22 Mcg = 94838 Iu)] Ibuprofen [Motrin] 600 mg PO Q8HR PRN 08/10/21 01/17/22 Ondansetron Odt [Zofran ODT] 4 mg PO Q12HR PRN 08/10/21 01/17/22 Oxybutynin Chloride [Ditropan XL] 10 mg PO DAILY 01/10/22 01/17/22 Pantoprazole [Protonix] 40 mg PO DAILY 01/10/22 01/17/22 Pregabalin [Lyrica] 100 mg PO TID 01/10/22 01/17/22 cloNIDine HCL [Catapres] 0.1 mg PO TID PRN 01/10/22 01/17/22 clonazePAM [KlonoPIN] 2 mg PO DAILY 01/10/22 01/17/22 risperiDONE [RisperDAL] 1 mg PO DAILY 01/17/22 01/17/22 Previous Rx's Medication Instructions Recorded Escitalopram [Lexapro] 20 mg PO DAILY 30 Days tab 08/11/21 Mirtazapine [Remeron] 30 mg PO HS 30 Days tab 08/11/21 Albuterol Inhaler [Ventolin Hfa 2 puff INHALATION Q4HR PRN #1 each 12/09/21 Inhaler] Allergies Allergy/AdvReac Type Severity Reaction Status Date / Time aspirin AdvReac Abdominal Verified 02/07/22 09:29 Pain Review of Systems ROS Statement: Those systems with pertinent positive or pertinent negative responses have been documented in the HPI. ROS Other: All systems not noted in ROS Statement are negative. Past Medical History Past Medical History: Asthma, Fibromyalgia, GERD/Reflux, Liver Disease Additional Past Medical History / Comment(s): hep c treated , pneumothorax with chest tube in past. spasming of esophagus hard time swallowing. arthritis in hands, neck and spine. History of Any Multi-Drug Resistant Organisms: None Reported Past Surgical History: Appendectomy, Section Additional Past Surgical History / Comment(s): Colposcopy/LEEP, wisdom teeth extraction. Past Anesthesia/Blood Transfusion Reactions: No Reported Reaction Additional Past Anesthesia/Blood Transfusion Reaction / Comment(s): no blood transfusions Past Psychological History: Anxiety, Depression, PTSD Smoking Status: Former smoker, Vaper Past Alcohol Use History: None Reported Past Drug Use History: None Reported - Past Family History Mother Family Medical History: COPD Additional Family Medical History / Comment(s): Ex-smoker, uses 02 Father Family Medical History: CVA/TIA Additional Family Medical History / Comment(s): brain aneurysm. General Exam Limitations: no limitations Course Vital Signs 02/07/22 02/07/22 09:26 10:10 Temperature 97.5 F L Pulse Rate 68 58 L Respiratory 20 16 Rate Blood Pressure 110/75 105/61 O2 Sat by Pulse 99 96 Oximetry Medical Decision Making - Lab Data Result diagrams: 02/07/22 10:07 02/07/22 10:07 Lab Results 02/07/22 02/07/22 02/07/22 Range/Units 09:41 10:07 10:07 WBC 3.3 L (3.8-10.6) k/uL RBC 3.96 (3.80-5.40) m/uL Hgb 12.0 (11.4-16.0) gm/dL Hct 34.9 (34.0-46.0) % MCV 88.0 (80.0-100.0) fL MCH 30.4 (25.0-35.0) pg MCHC 34.5 (31.0-37.0) g/dL RDW 13.4 (11.5-15.5) % Plt Count 261 (150-450) k/uL MPV 8.2 Neutrophils % 51 % Lymphocytes % 37 % Monocytes % 6 % Eosinophils % 3 % Basophils % 0 % Neutrophils # 1.7 (1.3-7.7) k/uL Lymphocytes # 1.2 (1.0-4.8) k/uL Monocytes # 0.2 (0-1.0) k/uL Eosinophils # 0.1 (0-0.7) k/uL Basophils # 0.0 (0-0.2) k/uL Sodium 138 (137-145) mmol/L Potassium 4.2 (3.5-5.1) mmol/L Chloride 110 H (98-107) mmol/L Carbon Dioxide 21 L (22-30) mmol/L Anion Gap 7 mmol/L BUN 18 H (7-17) mg/dL Creatinine 0.71 (0.52-1.04) mg/dL Est GFR (CKD-EPI)AfAm >90 (>60 ml/min/1.73 sqM) Est GFR (CKD-EPI)NonAf >90 (>60 ml/min/1.73 sqM) Glucose 111 H (74-99) mg/dL Calcium 8.9 (8.4-10.2) mg/dL Total Bilirubin 0.2 (0.2-1.3) mg/dL AST 19 (14-36) U/L ALT 16 (4-34) U/L Alkaline Phosphatase 51 (38-126) U/L Total Protein 6.5 (6.3-8.2) g/dL Albumin 4.2 (3.5-5.0) g/dL Urine Color Light Red Urine Appearance Cloudy H (Clear) Urine pH 6.0 (5.0-8.0) Ur Specific [place] 1.027 (1.001-1.035) Urine Protein Trace H (Negative) Urine Glucose (UA) Negative (Negative) Urine Ketones Negative (Negative) Urine Blood Large H (Negative) Urine Nitrite Negative (Negative) Urine Bilirubin Negative (Negative) Urine Urobilinogen <2.0 (<2.0) mg/dL Ur Leukocyte Esterase Negative (Negative) Urine RBC 5 (0-5) /hpf Urine WBC 5 (0-5) /hpf Ur Squamous Epith Cells 13 H (0-4) /hpf Urine Bacteria Rare H (None) /hpf Urine Mucus Moderate H (None) /hpf Influenza Type A (PCR) (Not Detectd) Influenza Type B (PCR) (Not Detectd) RSV (PCR) (Not Detectd) SARS-CoV-2 (PCR) (Not Detectd) 02/07/22 Range/Units 10:07 WBC (3.8-10.6) k/uL RBC (3.80-5.40) m/uL Hgb (11.4-16.0) gm/dL Hct (34.0-46.0) % MCV (80.0-100.0) fL MCH (25.0-35.0) pg MCHC (31.0-37.0) g/dL RDW (11.5-15.5) % Plt Count (150-450) k/uL MPV Neutrophils % % Lymphocytes % % Monocytes % % Eosinophils % % Basophils % % Neutrophils # (1.3-7.7) k/uL Lymphocytes # (1.0-4.8) k/uL Monocytes # (0-1.0) k/uL Eosinophils # (0-0.7) k/uL Basophils # (0-0.2) k/uL Sodium (137-145) mmol/L Potassium (3.5-5.1) mmol/L Chloride (98-107) mmol/L Carbon Dioxide (22-30) mmol/L Anion Gap mmol/L BUN (7-17) mg/dL Creatinine (0.52-1.04) mg/dL Est GFR (CKD-EPI)AfAm (>60 ml/min/1.73 sqM) Est GFR (CKD-EPI)NonAf (>60 ml/min/1.73 sqM) Glucose (74-99) mg/dL Calcium (8.4-10.2) mg/dL Total Bilirubin (0.2-1.3) mg/dL AST (14-36) U/L ALT (4-34) U/L Alkaline Phosphatase (38-126) U/L Total Protein (6.3-8.2) g/dL Albumin (3.5-5.0) g/dL Urine Color Urine Appearance (Clear) Urine pH (5.0-8.0) Ur Specific [place] (1.001-1.035) Urine Protein (Negative) Urine Glucose (UA) (Negative) Urine Ketones (Negative) Urine Blood (Negative) Urine Nitrite (Negative) Urine Bilirubin (Negative) Urine Urobilinogen (<2.0) mg/dL Ur Leukocyte Esterase (Negative) Urine RBC (0-5) /hpf Urine WBC (0-5) /hpf Ur Squamous Epith Cells (0-4) /hpf Urine Bacteria (None) /hpf Urine Mucus (None) /hpf Influenza Type A (PCR) Not Detected (Not Detectd) Influenza Type B (PCR) Not Detected (Not Detectd) RSV (PCR) Not Detected (Not Detectd) SARS-CoV-2 (PCR) Not Detected (Not Detectd) Disposition Clinical Impression: Back strain, URI (upper respiratory infection) Disposition: HOME SELF-CARE Condition: Good Is patient prescribed a controlled substance at d/c from ED?: No Referrals: Zach Bustos DO [Primary Care Provider] - 1-2 days Time of Disposition: 11:18
[2022-02-07 10:06] LABS: Appearance,Urine Cloudy (Clear); Bacteria,Urine Rare /hpf; Bilirubin,Urine Negative (Negative); Blood,Urine Large (Negative); Color,Urine Light Red; Glucose,Urine (UA) Negative (Negative); Ketones,Urine Negative (Negative); Leukocyte Esterase,Urine Negative (Negative); Mucus,Urine Moderate /hpf; Nitrite,Urine Negative (Negative); Protein,Urine Trace (Negative); RBC,Urine 5 /hpf (0-5); Specific Gravity,Urine 1.027 (1.001-1.035); Squamous Epithelial Cell,Urine 13 /hpf (0-4); Urobilinogen,Urine <2.0 mg/dL (<2.0); WBC,Urine 5 /hpf (0-5)
[2022-02-07 10:28] LABS: Basophils % (A) 0 %; Eosinophils # (A) 0.1 k/uL (0-0.7); Eosinophils % (A) 3 %; HCT 34.9 % (34.0-46.0); Lymphocytes # (A) 1.2 k/uL (1.0-4.8); Lymphocytes % (A) 37 %; MCH 30.4 pg (25.0-35.0); MCHC 34.5 g/dL (31.0-37.0); Mean Platelet Volume 8.2; Monocytes # (A) 0.2 k/uL (0-1.0); Monocytes % (A) 6 %; Neutrophils # (A) 1.7 k/uL (1.3-7.7); Neutrophils % (A) 51 %; Platelet Count 261 k/uL (150-450); RBC 3.96 m/uL (3.80-5.40); RDW 13.4 % (11.5-15.5); WBC 3.3 k/uL (3.8-10.6)
--- NOTE | 2022-02-07 10:38 | XR ---
EXAMINATION TYPE: XR abdomen acute w cxr DATE OF EXAM: 02/07/2022 COMPARISON: NONE HISTORY: Pain TECHNIQUE: Single view of the chest and 2 views of the abdomen are submitted. FINDINGS: Single view of the chest fails demonstrate evidence for acute pulmonary disease. There is no evidence for pneumoperitoneum. The bowel gas pattern is unremarkable as there is air throughout nondilated small and large bowel. No sizeable air fluid levels.No mass effects are seen. No unusual calcifications. IMPRESSION: 1. Unremarkable study.
[2022-02-07 10:40] LABS: ALT 16 U/L (4-34); AST 19 U/L (14-36); African American GFR (CKD) >90 (>60 ml/min/1.73 sqM); Albumin 4.2 g/dL (3.5-5.0); Alkaline Phosphatase 51 U/L (38-126); Anion Gap 7 mmol/L; Blood Urea Nitrogen 18 mg/dL (7-17); Calcium 8.9 mg/dL (8.4-10.2); Carbon Dioxide 21 mmol/L (22-30); Chloride 110 mmol/L (98-107); Glucose 111 mg/dL (74-99); Non-African American GFR(CKD) >90 (>60 ml/min/1.73 sqM); Potassium 4.2 mmol/L (3.5-5.1); Sodium 138 mmol/L (137-145); Total Bilirubin 0.2 mg/dL (0.2-1.3); Total Protein 6.5 g/dL (6.3-8.2)
[2022-02-07] MEDS ORDERED: LIDOCAINE 5% PATCH TOPICAL STA (11:14)
[2022-02-07] MEDS ORDERED: ACET/COD 300 MG/30 MG STARTER PACK 6 TAB BTL PO STA (11:14)
[2022-02-07 12:24] VITALS: BP 110/60; PULSE 60; RESP 18
== END 2022-02-07 12:24 | disposition home or self-care (01) ==
LOC: EC 09:18
DX: S39.012A Strain of muscle, fascia and tendon of lower back, initial encounter (principal); J06.9 Acute upper respiratory infection, unspecified; J45.909 Unspecified asthma, uncomplicated; K21.9 Gastro-esophageal reflux disease without esophagitis; F41.9 Anxiety disorder, unspecified; F32.A Depression, unspecified; Z87.891 Personal history of nicotine dependence; Z88.6 Allergy status to analgesic agent; Z79.899 Other long term (current) drug therapy; Z20.822 Contact with and (suspected) exposure to COVID-19; X50.9XXA Other and unspecified overexertion or strenuous movements or postures, initial encounter
CPT/HCPCS: 99285; 96374; 96361; 36415; 80053; 85025; 81001; 87636; 74022; J2270

== ENCOUNTER → 2022-10-09 | Outpatient (CLI) | payer OTHER ==
--- NOTE | 2022-10-10 08:27 | MM ---
Reason for Exam: Screening (asymptomatic). Baseline mammogram. Patient History: Menarche at age 13. First Full-Term at age 16. Patient has history of breast feeding. Paternal grandmother had breast cancer, age 73. Last menstrual period: 05/31/2022 Risk Values: Reva 5 year model risk: 0.5%. NCI Lifetime model risk: 7.2%. Prior Study Comparison: Patient's first Mammogram. Tissue Density: The breast tissue is heterogeneously dense. This may lower the sensitivity of mammography. Findings: Analyzed By CAD. Asymmetric density inner lower left breast 4.5 cm from the nipple. Additional views are recommended. No suspicious calcifications seen within either breast. Overall Assessment: Incomplete: need additional imaging evaluation, BI-RAD 0 Management: Diagnostic Mammogram of the left breast. . Patient should continue monthly self-breast exams. A clinical breast exam by your physician is recommended on an annual basis. This exam should not preclude additional follow-up of suspicious palpable abnormalities. Note on Reva scores and lifetime risk: 1. A Reva score greater than 3% is considered moderate risk. If this is the case, consider specialist referral to assess eligibility for a risk reducing agent. 2. If overall lifetime risk for the development of breast cancer is 20% or higher, the patient may qualify for future screening with alternating mammogram and breast MRI. Electronically signed and approved by: Adama Everett M.D. Radiologis
== END | disposition home or self-care (01) ==
LOC: RADMAMWWP 12:41
PROVIDERS: ATTEND Family Medicine
DX: Z12.31 Encounter for screening mammogram for malignant neoplasm of breast (principal); Z80.3 Family history of malignant neoplasm of breast
CPT/HCPCS: 77067

== ENCOUNTER → 2022-10-11 | Outpatient (CLI) | payer OTHER ==
--- NOTE | 2022-10-11 10:47 | MM ---
Reason for Exam: Additional evaluation requested from abnormal screening. Last screening mammogram was performed less than 1 month ago. Patient History: Menarche at age 13. First Full-Term at age 16. Patient has history of breast feeding. Paternal grandmother had breast cancer, age 73. Risk Values: Reva 5 year model risk: 0.5%. NCI Lifetime model risk: 7.2%. Prior Study Comparison: 10/09/2022 Bilateral MG screening mammo w CAD, [facility]. Tissue Density: Left: The breast tissue is heterogeneously dense. This may lower the sensitivity of mammography. Findings: Analyzed By CAD. No persistent asymmetric density or mass. Overall Assessment: Benign, BI-RAD 2 Management: Screening Mammogram of both breasts in 1 year. . Results were given to the patient verbally at the time of exam. Patient should continue monthly self-breast exams. A clinical breast exam by your physician is recommended on an annual basis. This exam should not preclude additional follow-up of suspicious palpable abnormalities. Note on Reva scores and lifetime risk: 1. A Reva score greater than 3% is considered moderate risk. If this is the case, consider specialist referral to assess eligibility for a risk reducing agent. 2. If overall lifetime risk for the development of breast cancer is 20% or higher, the patient may qualify for future screening with alternating mammogram and breast MRI. Electronically signed and approved by: Adama Everett M.D. Radiologis
== END | disposition home or self-care (01) ==
LOC: RADMAMWWP 10:19
PROVIDERS: ATTEND Family Medicine
DX: R92.8 Other abnormal and inconclusive findings on diagnostic imaging of breast (principal); Z80.3 Family history of malignant neoplasm of breast
CPT/HCPCS: 77065; G0279; 77061

== ENCOUNTER → 2024-06-13 | Outpatient (CLI) | payer OTHER ==
--- NOTE | 2024-06-13 12:03 | XR ---
EXAMINATION TYPE: XR chest 2V DATE OF EXAM: 06/13/2024 11:58 AM COMPARISON: Chest radiographs from 12/11/2010, CT chest 01/15/2022 TECHNIQUE: XR chest 2V Frontal and lateral views of the chest. CLINICAL INDICATION:Female, 43 years old with history of R91.1 SOLITARY PULMONARY NODULE; FINDINGS: Lungs/Pleura: There is flattening of the diaphragm with increased lucency of the lungs. No evidence o f pneumothorax, pleural effusion or focal consolidation. No sizable pulmonary nodules identified. Pulmonary vascularity: Unremarkable. Heart/mediastinum: Cardiomediastinal silhouette is unremarkable. Musculoskeletal: No acute osseous pathology. Other findings: None IMPRESSION: 1. No acute cardiopulmonary disease/process. 2. Possible COPD changes. 3. No sizable pulmonary nodules identified. Consider further evaluation with CT chest is continued cl inical concern. [facility], , 06/13/2024 12:01 PM
== END | disposition home or self-care (01) ==
LOC: RADXRMAIN 11:44
PROVIDERS: ATTEND Nurse Practitioner Family
DX: R91.1 Solitary pulmonary nodule (principal)
CPT/HCPCS: 71046